=== PATIENT | female | born 1950 | race Caucasian/White ===

== ENCOUNTER 2020-11-10 14:16 | Inpatient (IN) | payer OTHER, SELFPAY ==
[~2020-11-10] VITALS: Ht 162.6 cm; Wt 85.3 kg
[2020-11-10 14:28] VITALS: BP 140/90
--- NOTE | 2020-11-10 14:45 | NUR ---
PATIENT C/O WEAKNESS, ONGOING "FLU LIKE" SYMPTOMS X 10 DAYS, INTERMITTENT FEVERS, INTERMITTENT VOMITING, FEELS DEHYDRATED, NO SPECIFIC PAIN, SEVERE FATIGUE. ONSET OF SOB LAST NIGHT, WORSE TODAY, NOTIFIED MD. WAS UNABLE TO TRANSPORT SELF FOR MEDICAL CARE, ARRIVED VIA AMBULANCE. PLACED ON GURNEY WITH SAP GATHERER IN PLACE SHOWING SINUS TACH, SKIN IS WARM BUT CLAMMY, RESP EVEN AND UNLABORED, BREATH SOUNDS CLEAR. SAO2 IS 90% ON 5l O2 VIA N/C IV ACCESS IN RAC, LABS DRAWN, SWABBED FOR COVID JESSICA. AWAITING ER MD WORLEY.
[2020-11-10] MEDS ORDERED: NACL 0.9% 1,000 ML IV ONE ×2 (15:30→17:30)
--- NOTE | 2020-11-10 15:30 | NUR ---
DR CASIANO AT BEDSIDE FOR EXAM AND EVAL.
--- NOTE | 2020-11-10 15:40 | NUR ---
medical instrument technician at pt bedside.
[2020-11-10 15:49] LABS: BASOPHILS % (AUTO) 0.1 % (0.0-2.0); EOSINOPHILS % (AUTO) 0.1 % (0.0-4.0); HEMATOCRIT 36.1 % (36-48); LYMPHOCYTES # (AUTO) 0.2 K/uL (2.5-16.5); LYMPHOCYTES % (AUTO) 1.3 % (20.5-51.1); MEAN CORPUSCULAR HEMOGLOBIN 32 pg (27-31); MEAN CORPUSCULAR HGB CONC 33 g/dL (33-37); MEAN CORPUSCULAR VOLUME 96.5 fL (80-94); MONOCYTES # (AUTO) 0.1 K/uL (0.8-1.0); MONOCYTES % (AUTO) 0.7 % (1.7-9.3); NEUTROPHILS # (AUTO) 13.5 K/uL (1.8-7.7); NEUTROPHILS % (AUTO) 97.8 % (42.2-75.2); PLATELET COUNT (AUTO) 287 K/uL (140-450); RED BLOOD CELL COUNT(AUTO) 3.74 MIL/uL (4.20-5.40); RED CELL DISTRIBUTION WIDTH 14.1 % (11.6-13.7); WHITE BLOOD COUNT (AUTO) 13.8 K/uL (4.8-10.8)
--- NOTE | 2020-11-10 15:52 | NUR ---
RAD AT PT BEDSIDE.
[2020-11-10 16:08] LABS: ALBUMIN 1.5 g/dL (3.4-5.0); ANION GAP 13.3 (8-16); CREATININE 1.1 mg/dL (0.6-1.3); POTASSIUM 3.3 mmol/L (3.5-5.1); TOTAL BILIRUBIN 0.6 mg/dL (0.0-1.0)
--- NOTE | 2020-11-10 16:27 | NUR ---
RESTING QUIETLY, FLUIDS INFUSING, PRE SALES SYSTEMS ENGINEER NSR 108
[2020-11-10] MEDS ORDERED: DOXYCYCLINE 100 MG in DEXTROSE 5% 100 ML IV SCH (17:30)
--- NOTE | 2020-11-10 17:30 | NUR ---
PATIENT IS RESTING WITH EYES CLOSED, MECHANICAL CAD DESIGNER SHOWS SINUS TACH 101, NO ECTOPY. RESP EVEN AND UNLABORED, O2 VIA NC @5L, SAO2 90%, SKIN IS WARM BUT SL CLAMMY, PATIENT STATES SHE IS PAIN FREE BUT FEELS WEAK. ADVISED PATIENT TO CALL FOR HELP PRIOR TO ATTEMPTING TO GET OUT OF BED. DR CASIANO UPDATED ON PATIENT STATUS, PLAN IS TO ADMIT PATIENT. PATIENT IS AWARE AND AGREES WITH PLAN.
[2020-11-10] MEDS ORDERED: cefTRIAXone 1,000 MG VIAL ONE (17:44)
[2020-11-10] MEDS ORDERED: DOXYCYCLINE 100 MG VIAL IV ONE (18:16)
[2020-11-10] MEDS ORDERED: SODIUM PHOS / POTASSIUM PHOS 1 PKT PDR PO PRN (19:05)
[2020-11-10] MEDS ORDERED: ACETAMINOPHEN 325 MG TAB PO PRN (19:05)
[2020-11-10] MEDS ORDERED: HYDROcodone/APAP 5/325 MG 1 TAB TAB PO PRN (19:05)
[2020-11-10] MEDS ORDERED: DOCUSATE SODIUM 100 MG GELCAP PO PRN (19:05)
[2020-11-10] MEDS ORDERED: ONDANSETRON 4 MG/2 ML VIAL IM/IVP PRN (19:05)
[2020-11-10] MEDS ORDERED: POTASSIUM CHLORIDE 40 MEQ, LIDOCAINE MPF 1% 25 MG in NACL 0.9% 250 ML IV PRN (19:05)
[2020-11-10] MEDS ORDERED: MAG SULF 2000 MG/WATER PREMIX 50 ML IV PRN (19:05)
--- NOTE | 2020-11-10 19:29 | NUR ---
O2 SATURATION FALLING INTO THE 80'S WITH O2 VIA NC AT 5L, CONVERTED TO NRB MASK AT 15L, SATS NOT IMPROVING. RT PAGED PER DR SWAN. RT IN CODE, WILL RESPOND SHORTLY, NOTIFIED.
--- NOTE | 2020-11-10 19:34 | NUR ---
RT AT BEDSIDE.
--- NOTE | 2020-11-10 19:36 | NUR ---
PLAN IS TO PLACE PATIENT ON BIPAP, ADMIT TO ICU.
--- NOTE | 2020-11-10 19:42 | NUR ---
Report taken from SHIRA MCKENZIE for continuation of patient care at this time.
[2020-11-10 19:51] LABS: MAGNESIUM 1.9 mg/dL (1.8-2.4); PHOSPHORUS 3.9 mg/dL (2.5-4.9)
--- NOTE | 2020-11-10 20:13 | NUR ---
PATIENT SITTING IN BED LOCKED IN LOWEST POSITION, HOB ELEVATED, PATIENT REPORTS SOB. PATIENT CONNECTED TO MONITOR, PATIENT IS TACHY AT 118HR, 146/81BP, 95% O2 ON 100% HIGHFLOW, 35RR. CRACKLES AUSCULTATED THROUGHOUT LUNG MEYER. CORNER CUTTER MACHINE OPERATOR AT BEDSIDE. PATIENT DENIES PAIN. WILL CONTINUE TO MONITOR.
[2020-11-10] MEDS: NACL 0.9% 1,000 ML IV SCH (20:28)
--- NOTE | 2020-11-10 21:17 | NUR ---
1920 PLACED PATIENT ON HI FLOW OXYGEN AT 100% FIO2 AT 40L. PATIENTS SATS DROPPED TO 85% ON HI FLOW SO PLACED NRB MASK ON PATIENT ALSO AT 100%
--- NOTE | 2020-11-10 22:01 | NUR ---
PROVIDED PATIENT W BEDSIDE COMMODE. PATIENT WAS ABLE TO STAND UP AND WALK TO BEDSIDE COMODE AND BACK TO BED.
[2020-11-11] VITALS (13 sets, daily range): BP systolic 82–145; BP diastolic 51–103
--- NOTE | 2020-11-11 00:01 | NUR ---
PROVIDED PATIENT W BEDPAN, REMOVED BEDPAN. PATIENT PROVIDED 80 CC OF YELLOW URINE.
--- NOTE | 2020-11-11 01:40 | NUR ---
PATIENT O2 SAT AT 76%, CALLED TIRE BUILDER OPERATOR. PATIENT AOX4, SPEAKING IN FULL SENTENCES.
--- NOTE | 2020-11-11 04:44 | NUR ---
COVERING FOR PRIMARY RN DURING LUNCH. Patient appears to be resting comfortably in bed. EYES CLOSED. NO NOTED DISTRESS AT THIS TIME. HOB REMAINS ELEVATED.
--- NOTE | 2020-11-11 06:00 | NUR ---
Provided patient w bed granados, patient voided approximately 100cc of clear yellow urine. Patient denies SOB while on oxygen only. patient breathing tachypneic. Will continue to monitor.
[2020-11-11 06:01] LABS: HEMATOCRIT 38.8 % (36-48); MEAN CORPUSCULAR HEMOGLOBIN 32 pg (27-31); MEAN CORPUSCULAR HGB CONC 33 g/dL (33-37); MEAN CORPUSCULAR VOLUME 95.7 fL (80-94); PLATELET COUNT (AUTO) 263 K/uL (140-450); RED BLOOD CELL COUNT(AUTO) 4.06 MIL/uL (4.20-5.40); RED CELL DISTRIBUTION WIDTH 13.8 % (11.6-13.7); WHITE BLOOD COUNT (AUTO) 13.6 K/uL (4.8-10.8)
--- NOTE | 2020-11-11 06:25 | NUR ---
PATIENT LAYING IN BED W EYES CLOSED. HOB ELEVATED. BED LOCKED IN LOWEST POSITION, X2 SIDERAILS UP FOR PATIENT SAFETY. BREATHING TACHYPNEIC AT 38RR, 124HR, 88 O2. WILL CONTINUE TO MONITOR.
[2020-11-11 06:35] LABS: ANION GAP 13.9 (8-16); CARBON DIOXIDE 22.2 mmol/L (21-32); POTASSIUM 4.1 mmol/L (3.5-5.1)
--- NOTE | 2020-11-11 07:15 | NUR ---
REPORT RECEIVED FROM ANDRIY SILVA FOR CONTINUITY OF CARE. PT A&OX4. ON NON REBREATHER 15L. HIGH FLOW NASAL CANNULA. 40LPM. FIO2%. O2 SATURATION 77%. IV SITE LAC 22G INFUSING NS 80 ML/HR. ORIENTED PT TO BE SIDE LYING AND PRONE POSITION. PT IN SIDE LYING POSITION. RT CALLED TO BEDSIDE. SKIN NON INTACT. CALL LIGHT WITHIN REACH. SAFETY PRECAUTIONS IN PLACE. WILL CONTINUE TO MONITOR.
--- NOTE | 2020-11-11 07:15 | NUR ---
Pt report given to SHIRA Hubbard. Transfer of care at this time.
--- NOTE | 2020-11-11 07:53 | NUR ---
RT AT BEDSIDE
--- NOTE | 2020-11-11 08:00 | NUR ---
Patient will be admitted to care of DR DOUGLAS. Admited to TELEMETRY. Will go to room 117 A. Belongings list completed. Report to TEN SILVA.
--- NOTE | 2020-11-11 08:36 | NUR ---
PLACED PT ON BIPAP IN THE ER DUE TO FREQUENT DESATING, TRANSFERRED PT TO FLOOR ON BIPAP, PLACED HFNC IN ROOM FOR POSSIBLE DOWNGRADE LATER. PT TOLERATING AT THIS TIME
--- NOTE | 2020-11-11 08:45 | NUR ---
PATIENT HAS BEEN SCREENED AND CATEGORIZED MODERATE NUTRITION RISK. PATIENT WILL BE SEEN WITHIN 3-5 DAYS OF ADMISSION. 11/13/20 11/15/[address]
[2020-11-11] MEDS ORDERED: AZITHROMYCIN 250 MG TAB PO SCH (09:00)
[2020-11-11] MEDS ORDERED: LORATADINE 10 MG TAB PO SCH (09:00)
[2020-11-11] MEDS ORDERED: FAMOTIDINE 20 MG TAB PO SCH (09:00)
[2020-11-11 09:29] LABS: LYMPHOCYTES % (MANUAL) 3 % (20-46); MONOCYTES % (MANUAL) 2 % (5-12)
--- NOTE | 2020-11-11 09:54 | NUR ---
SCHEDULED MEDICATIONS DUE GIVEN. WILL CONTINUE TO MONITOR.
--- NOTE | 2020-11-11 11:45 | NUR ---
TRANSPORTED PT TO CT SCANNER W TECH ON BIPAP, PT TOLERATED TRANSPORT ON BIPAP, PT STAYED ON BIPAP DURING CT SCANNER AT 100% FIO2.
--- NOTE | 2020-11-11 12:20 | NUR ---
PT DESATED AFTER REMOVING THE BIPAP MASK FOR ADDING THE BIPAP GEL FOR SKIN PROTECTION. PT ASKED FOR A SIP OF WATER WHILE MASK WAS OFF. AFTER REPLACING MASK ON PT AND PUTTING BACK ON PULSE OX PT HAD DESATED, INCREASED SETTINGS ON BIPAP, INFORMED NURSE, AND SET UP SUCTION FOR POSSIBLE EMERGENT PROCEDURE LATER. INFORMED RN THAT PT SHOULD NOT TAKE MASK OFF FOR SHORT TIME AT THIS TIME TILL PTS OXYGENATION IMPROVES. RECOMMENDED ICU TRANSFER DUE TO SETTINGS ON BIPAP AND OXYGENATION.
[2020-11-11] MEDS: PIPERACILLIN/TAZOBACTAM 3.375 GM in DEXTROSE 5% 50 ML IV SCH ×2 (12:25→18:58)
[2020-11-11] MEDS: NACL 0.9% 1,000 ML IV SCH (12:25)
--- NOTE | 2020-11-11 12:27 | NUR ---
SCHEDULED MEDICATIONS DUE GIVEN. WILL CONTINUE TO MONITOR.
[2020-11-11] MEDS ORDERED: LORazepam 2 MG/ML VIAL IVP ONE (12:50)
--- NOTE | 2020-11-11 13:30 | NUR ---
RECEIVED REPORT FROM TEN SILVA. PT AOX4, ABLE TO MAKE NEEDS KNOWN, FOLLOWS COMMANDS, NO C/O PAIN. PT BIPAP FIO2 100%. RESPIRATIONS ARE RAPID AND SHALLOW, O2SAT 82%, RT CALLED. ST ON MONITOR 130s. MARSHALL INSERTED. OBTAINED CONSENT FOR PICC LINE
--- NOTE | 2020-11-11 13:43 | NUR ---
ADMINISTERED SCHEDULED ONE TIME DOSE OF ATIVAN PER MD ORDER FOR TACHYPNEA. MED EDUCATION PROVIDED, PATIENT VERBALIZES UNDERSTANDING. PICC LINE NURSE AT BESIDE AT THIS TIME, PRIMARY RN ORDERING STAT XRAY FOR PLACEMENT CONFIRMATION. WILL MONITOR CLOSELY.
--- NOTE | 2020-11-11 14:15 | NUR ---
PICC PLACEMENT CONFIRMED BY CXR
--- NOTE | 2020-11-11 14:30 | NUR ---
PT RESTING IN BED. RESPIRATIONS STILL RAPID AND SHALLOW, [id number] DR FAN AWARE AND WILL COME SEE PT
[2020-11-11] MEDS ORDERED: PROPOFOL 1000 MG/100 ML PREMIX 100 ML IV ONE (16:46)
--- NOTE | 2020-11-11 16:54 | NUR ---
PT INTUBATED BY DR CASIANO WITH RSI, 20MG ETOMIDATE IV, 75MG PAULINO IV, 7.0 FR ETT, SECURED 22 CM AT TEETH, CO2 DETECTED, GOOD CHEST RISE AND FALL, XRAY ORDERED FOR CONFIRMATION OF POSITION
--- NOTE | 2020-11-11 17:05 | NUR ---
DUE TO INCREASED WOB, LOW SATS, AND TIRING OUT ON BIPAP PT WAS INTUBATED WITH ER MD CASIANO. WAS ABLE TO GET TUBE IN EASILY, PLACED WELL, COLOR CHANGE, AND STABILIZED ON VENT WITH SETTINGS PER DR MARTINEZ.
--- NOTE | 2020-11-11 17:06 | NUR ---
DAUGHTER RETURNED CALL, IT WAS EXPLAINED THAT THE PATIENT IS UNDERGOING INTUBATION AT THIS TIME. PATIENT CONDITION EXPLAINED, ALL QUESTIONS ANSWERED.
[2020-11-11] MEDS: PROPOFOL 1000 MG/100 ML PREMIX 100 ML IV PRN (17:10)
[2020-11-11] MEDS: NOREPINEPHRINE 8 MG in DEXTROSE 5% 250 ML IV PRN ×2 (17:40→23:45)
--- NOTE | 2020-11-11 18:16 | NUR ---
DR FAN NOTIFIED OF PT CONDITION, BP 80/55, HR 141, O2SAT 79%, PROPOFOL DRIP AT 10MCG/MIN, ORDER FOR NS BOLUS 500ML AND LEVOPHED RECEIVED, VENT SETTING CHANGE ORDER GIVEN TO RT
[2020-11-11] MEDS ORDERED: NACL 0.9% 500 ML IV ONE (18:20)
[2020-11-11] MEDS ORDERED: NOREPINEPHRINE 4 MG/4 ML VIAL IV ONE ×2 (18:22→23:32)
--- NOTE | 2020-11-11 18:37 | NUR ---
BP 85/62 SPO2 81% HR 148 RR20. TITRATED LEVOPHED UP TO 22MCG/MIN
--- NOTE | 2020-11-11 19:15 | NUR ---
RECEIVED PATIENT FROM AM SHIFT NURSE FOR CONTINUITY OF CARE. RASS -3. ETT TO VENT. RT AT BEDSIDE. O2 SAT 88%. NGT TO LEFT NARE NOTED. S1/S2 AUSCULTATED. FLACC 0. SKIN WARM, DRY. SALINE LOCK TO LEFT AC 18G PATENT/INTACT. RIGHT UPPER ARM PICC NOTED, INFUSING LEVOPHED AND PROPOFOL WELL. ABDOMEN SOFT, NONTENDER, NONDISTENDED. BOWEL SOUNDS ACTIVE x4 QUADRANTS. MARSHALL CATHETER PATENT WITH YELLOW URINE DRAINING TO GRAVITY. SAFETY PRECAUTIONS IN PLACE. ISOLATION PRECAUTIONS OBSERVED. PLAN OF CARE DISCUSSED.
[2020-11-11] MEDS ORDERED: VANCOMYCIN PER PHARMACY MC PRN (19:50)
[2020-11-11] MEDS ORDERED: VANCOMYCIN 1GM/DEXT 5% PREMIX 200 ML IV SCH (20:01)
[2020-11-11] MEDS ORDERED: SODIUM BICARBONATE 8.4% PFS 50 MEQ/50 ML SYR IVP ONE (20:07)
[2020-11-11] MEDS: [UNRECOGNIZED DRUG - OTHER] IV SCH ×2 (20:33)
[2020-11-11] MEDS: SODIUM BICARBONATE IV SCH ×2 (20:33)
--- NOTE | 2020-11-11 20:35 | NUR ---
LATE ENTRY- 0.9% NS IVF DISCONTINUED AT 1652 AND 1830. DOXYCYCLINE IVPB DISCONTINUED AT 1830
[2020-11-11] MEDS: methylPREDNISolone SS 125 MG/2 ML VIAL IVP SCH (20:41)
--- NOTE | 2020-11-11 21:30 | NUR ---
DUE MEDS GIVEN.
[2020-11-11] MEDS ORDERED: AZITHROMYCIN 500 MG INJ VIAL IV ONE (22:05)
[2020-11-11] MEDS ORDERED: VANCOMYCIN 1,000 MG VIAL ONE (22:08)
[2020-11-11] MEDS: AZITHROMYCIN 500 MG in DEXTROSE 5% 250 ML IV SCH (22:19)
--- NOTE | 2020-11-11 23:01 | NUR ---
NEW ORDERS RECEIVED AND CARRIED OUT. NO S/S RESPIRATORY DISTRESS. FLACC 0.
[2020-11-12] VITALS (23 sets, daily range): BP systolic 64–140; BP diastolic 15–80
[2020-11-12] MEDS: PROPOFOL 1000 MG/100 ML PREMIX 100 ML IV PRN ×3 (00:22→23:47)
[2020-11-12] MEDS ORDERED: VASOPRESSIN 20 UNITS/ML VIAL ONE (00:59)
[2020-11-12] MEDS ORDERED: VASOPRESSIN 20 UNITS in NACL 0.9% 250 ML IV SCH (01:00)
--- NOTE | 2020-11-12 01:15 | NUR ---
PATIENT WITH LOW BP, ORDERS RECEIVED AND CARRIED OUT.
--- NOTE | 2020-11-12 03:05 | NUR ---
RT AT BEDSIDE.
[2020-11-12] MEDS: NACL 0.9% 1,000 ML IV SCH (04:02)
[2020-11-12] MEDS: methylPREDNISolone SS 125 MG/2 ML VIAL IVP SCH ×3 (04:07→20:05)
[2020-11-12] MEDS ORDERED: NOREPINEPHRINE 4 MG/4 ML VIAL IV ONE (04:17)
[2020-11-12] MEDS ORDERED: PHENYLEPHRINE 10 MG/ML VIAL ONE (04:21)
[2020-11-12] MEDS ORDERED: PHENYLEPHRINE 40 MG in NACL 0.9% 250 ML IV PRN (04:45)
--- NOTE | 2020-11-12 05:30 | NUR ---
ALL NEEDS ANTICIPATED AND MET. FLACC 0. NO S/S RESPIRATORY DISTRESS. PATIENT IS CLEAN/DRY.
[2020-11-12 05:59] LABS: HEMATOCRIT 38.9 % (36-48); HEMOGLOBIN 12.9 g/dL (12.0-16.0); MEAN CORPUSCULAR HEMOGLOBIN 32 pg (27-31); MEAN CORPUSCULAR HGB CONC 33 g/dL (33-37); MEAN CORPUSCULAR VOLUME 97.4 fL (80-94); PLATELET COUNT (AUTO) 247 K/uL (140-450); RED CELL DISTRIBUTION WIDTH 14.8 % (11.6-13.7)
[2020-11-12 06:20] LABS: ANION GAP 18.1 (8-16); CARBON DIOXIDE 19.5 mmol/L (21-32); CREATININE 1.4 mg/dL (0.6-1.3); POTASSIUM 4.6 mmol/L (3.5-5.1)
[2020-11-12] MEDS: MORPHINE SULFATE 2 MG/ML SYR IVP PRN (06:20)
[2020-11-12 06:21] LABS: WHITE BLOOD COUNT (AUTO) 30.5 K/uL (4.8-10.8)
--- NOTE | 2020-11-12 07:21 | NUR ---
ENDORSED TO AM SHIFT NURSE FOR CONTINUITY OF CARE.
--- NOTE | 2020-11-12 07:26 | NUR ---
RECEIVED PATIENT FROM PM SHIFT NURSE FOR CONTINUITY OF CARE. RASS -3. ETT TO VENT. RESPIRATIONS EVEN AND UNLABORED WITH NO SOB OR RESPIRATORY DISTRESS. NGT TO LEFT NARE NOTED. S1/S2 AUSCULTATED. FLACC 0. SKIN WARM, DRY. SALINE LOCK TO LEFT AC 18G PATENT/INTACT. RIGHT UPPER ARM PICC NOTED, INFUSING LEVOPHED 14MCG AND PROPOFOL 20MCG/KG WELL. ABDOMEN SOFT, NONTENDER, NONDISTENDED. BOWEL SOUNDS ACTIVE x4 QUADRANTS. MARSHALL CATHETER PATENT WITH YELLOW URINE DRAINING TO GRAVITY. SAFETY MEASURES IN PLACE. WILL CONTINUE TO MONITOR
[2020-11-12 07:45] LABS: BASOPHILS % (MANUAL) 0 % (0-2); EOSINOPHILS % (MANUAL) 0 % (0-4); LYMPHOCYTES % (MANUAL) 3 % (20-46); MONOCYTES % (MANUAL) 0 % (5-12)
[2020-11-12] MEDS ORDERED: NACL 0.9% 1,000 ML IV SCH (08:00)
[2020-11-12] MEDS: PANTOPRAZOLE 40 MG INJ VIAL IVP SCH (08:08)
--- NOTE | 2020-11-12 08:45 | NUR ---
DR. FAN AT BEDSIDE ASSESSING PATIENT.
--- NOTE | 2020-11-12 08:50 | NUR ---
VENT SETTINGS WEANED PER MD AT BEDSIDE, PER MD WEAN FIO2 TOLERATED.
--- NOTE | 2020-11-12 09:00 | NUR ---
DR. FAN ON THE PHONE WITH PATIENT DAUGHTER BENJI GIVING UPDATE. SAFETY MEASURES IN PLACE. WILL CONTINUE TO MONITOR
[2020-11-12] MEDS: SODIUM BICARBONATE IV SCH ×2 (09:18)
[2020-11-12] MEDS: [UNRECOGNIZED DRUG - OTHER] IV SCH ×2 (09:18)
[2020-11-12] MEDS ORDERED: COMMUNICATION ORDER MC ONE (09:35)
[2020-11-12] MEDS: SODIUM BICARBONATE 8.4% 100 MEQ in DEXT 5% / NACL 0.45% 1,000 ML IV SCH (10:15)
--- NOTE | 2020-11-12 10:37 | NUR ---
PT RESTING IN BED. NO SIGNS OF DISTRESS. VISIBLE RISE AND FALL OF CHEST, NO DISTRESS AT THIS TIME. SAFETY MEASURES IN PLACE. WILL CONTINUE TO MONITOR
--- NOTE | 2020-11-12 11:10 | NUR ---
DR. BRIGHT ASSESSING PATIENT
--- NOTE | 2020-11-12 12:33 | NUR ---
ADMINISTERED SCHED MED PRESCRIBED PER MD ORDER. PT TOLERATED WELL. SAFETY MEASURES IN PLACE. WILL CONTINUE TO MONITOR
[2020-11-12] MEDS: NOREPINEPHRINE 8 MG in DEXTROSE 5% 250 ML IV PRN (12:36)
--- NOTE | 2020-11-12 14:05 | NUR ---
REPOSITIONED PATIENT COMFORTABLY. ORAL CARE PERFORMED. PT TOLERATED WELL. SAFETY MEASURES IN PLACE. WILL CONTINUE TO MONITOR
--- NOTE | 2020-11-12 16:36 | NUR ---
ADMINISTERED SCHED MED PRESCRIBED PER MD ORDER. PT TOLERATED WELL. SAFETY MEASURES IN PLACE. WILL CONTINUE TO MONITOR
[2020-11-12] MEDS ORDERED: VANCOMYCIN 1,000 MG in DEXTROSE 5% 250 ML IV SCH (17:00)
--- NOTE | 2020-11-12 17:16 | NUR ---
DAUGHTER MILTON CALLED AND WANTED AN UPDATE. UPDATE GIVEN. SAFETY MEASURES IN PLACE. WILL CONTINUE TO MONITOR
--- NOTE | 2020-11-12 18:47 | NUR ---
DAUGHTER MILTON HERE AT DOOR TO SEE PATIENT. UPDATE GIVEN. SAFETY MEASURES IN PLACE. WILL CONTINUE TO MONITOR
--- NOTE | 2020-11-12 19:15 | NUR ---
RECEIVED PATIENT FROM AM SHIFT NURSE FOR CONTINUITY OF CARE. RASS -3. ETT TO VENT. O2SAT 96%. NGT TO LEFT NARE NOTED. S1/S2 AUSCULTATED. FLACC 0. SKIN WARM, DRY.RIGHT UPPER ARM PICC NOTED, INFUSING PROPOFOL WELL. ABDOMEN SOFT, NONTENDER, NONDISTENDED. BOWEL SOUNDS ACTIVE x4 QUADRANTS. MARSHALL CATHETER PATENT WITH YELLOW URINE DRAINING TO GRAVITY. SAFETY PRECAUTIONS IN PLACE. ISOLATION PRECAUTIONS OBSERVED. PLAN OF CARE DISCUSSED.
--- NOTE | 2020-11-12 19:15 | NUR ---
ENDORSED TO NIGHTSHIFT NURSE FOR CONTINUITY OF CARE
[2020-11-12] MEDS: AZITHROMYCIN 500 MG in DEXTROSE 5% 250 ML IV SCH (21:22)
--- NOTE | 2020-11-12 21:30 | NUR ---
DUE MEDS GIVEN ORDERED. NO S/S RESPIRATORY DISTRESS. RASS -3. FLACC 0. PATIENT IS CLEAN/DRY. ALL OTHER NEEDS MET.
--- NOTE | 2020-11-12 23:23 | NUR ---
PATIENT RESTING COMFORTABLY IN BED. RASS -3. NO S/S RESPIRATORY DISTRESS. FIO2 DECREASED TO 65% PER RT. FLACC 0. PATIENT IS CLEAN/DRY.
[2020-11-13] VITALS (31 sets, daily range): BP systolic 98–160; BP diastolic 56–99
--- NOTE | 2020-11-13 01:30 | NUR ---
VAP ORAL CARE RENDERED.
--- NOTE | 2020-11-13 03:30 | NUR ---
NO S/S RESPIRATORY DISTRESS. FLACC 0. PATIENT IS CLEAN/DRY.
[2020-11-13] MEDS: methylPREDNISolone SS 125 MG/2 ML VIAL IVP SCH ×3 (05:10→21:07)
[2020-11-13] MEDS: PROPOFOL 1000 MG/100 ML PREMIX 100 ML IV PRN ×4 (05:11→22:33)
[2020-11-13 05:46] LABS: BASOPHILS % (AUTO) 0.1 % (0.0-2.0); HEMATOCRIT 33.3 % (36-48); HEMOGLOBIN 11.3 g/dL (12.0-16.0); LYMPHOCYTES # (AUTO) 0.4 K/uL (2.5-16.5); MEAN CORPUSCULAR HEMOGLOBIN 33 pg (27-31); MEAN CORPUSCULAR HGB CONC 34 g/dL (33-37); MEAN CORPUSCULAR VOLUME 95.8 fL (80-94); MONOCYTES # (AUTO) 0.2 K/uL (0.8-1.0); MONOCYTES % (AUTO) 0.7 % (1.7-9.3); NEUTROPHILS # (AUTO) 21.2 K/uL (1.8-7.7); NEUTROPHILS % (AUTO) 97.2 % (42.2-75.2); PLATELET COUNT (AUTO) 152 K/uL (140-450); RED BLOOD CELL COUNT(AUTO) 3.48 MIL/uL (4.20-5.40); RED CELL DISTRIBUTION WIDTH 14.5 % (11.6-13.7); WHITE BLOOD COUNT (AUTO) 21.8 K/uL (4.8-10.8)
--- NOTE | 2020-11-13 05:55 | NUR ---
DUE MEDS GIVEN. PATIENT TURNED AND REPOSITIONED. NO S/S RESPIRATORY DISTRESS. FLACC 0.
[2020-11-13 06:03] LABS: ANION GAP 13.3 (8-16); CARBON DIOXIDE 25.3 mmol/L (21-32); CREATININE 1.7 mg/dL (0.6-1.3); POTASSIUM 3.6 mmol/L (3.5-5.1)
[2020-11-13 06:09] LABS: MAGNESIUM 2.6 mg/dL (1.8-2.4); PHOSPHORUS 3.3 mg/dL (2.5-4.9)
--- NOTE | 2020-11-13 07:22 | NUR ---
ENDORSED PATIENT TO AM SHIFT NURSE FOR CONTINUITY OF CARE.
[2020-11-13] MEDS: ALBUTEROL SULFATE/IPRATROPIU 3 ML SOL IH PRN ×3 (07:23→19:11)
--- NOTE | 2020-11-13 07:23 | NUR ---
RECEIVED INTUBATED PT WITH A 7.0 ETT SECURED @22 TEETH/GUM ON VENT. SETTINGS PC Pinsp 20, R28, PEEP 10 AND FIO2 TITRATED TO 45%. PT SUCTIONED OBTAINED SMALL AMOUNT OF THICK CLEAR SECRETIONS, AIRWAY IS PATENT AND ETT IS SECURE. PT NOT IN ANY DISTRESS AT THIS TIME. VENT IS PLUGGED INTO A RED OUTLET WITH ALARMS ON AND FUNCTIONING. WILL CONTINUE TO MONITOR.
--- NOTE | 2020-11-13 07:24 | NUR ---
RECEIVED BEDSIDE REPORT FROM UTILITY TECH NURSE LIBRA RN FOR CONTINUITY OF CARE. PATIENT IS SEDATED TO RASS -3, DRY WEIGHT 68 KG. RESPIRATION EVEN, UNLABORED ON ROOM AIR, LUNG SOUNDS WHEEZES AND DIMINISHED UPON AUSCULTATION, SPO2 AT 100% AT THIS TIME ON ETT TO VENT, AC/PC FIO2 50%, RATE 28, PEEP 10. NO SIGNS OF ACUTE DISTRESS NOTED. IV TO R UPPER ARM PICC LINE, PATENT, INTACT, INFUSING PROPOFOL 20 MCG/KG/MIN, SODIUM BICARBONATE AT 50 ML/HR. SKIN WARM TO TOUCH, CLEAN AND DRY. MARSHALL CATH IN PLACE, DRAINING TO GRAVITY, YELLOW URINE WITH MINIMAL SEDIMENT IN BAG NOTED. PILLOWS PLACED TO OFFLOAD PRESSURE. NGT IN L NARE, NOT CONNECTED IN SUCTIONING OR FEEDING. SAFETY MEASURES IN PLACE. ENHANCED DROPLET PRECAUTION IN PLACE. BED IN LOW POSITION, HOB ELEVATED 30 DEGREE, AND BED LOCKED.
--- NOTE | 2020-11-13 07:58 | NUR ---
RECEIVED CALL FROM DAUGHTER DANNY, ANSWERED ALL HER QUESTIONS, UPDATED HER WITH PATIENT'S CURRENT CONDITION, DANNY WAS AWARE.
[2020-11-13] MEDS: SODIUM BICARBONATE 8.4% 100 MEQ in DEXT 5% / NACL 0.45% 1,000 ML IV SCH (08:00)
--- NOTE | 2020-11-13 08:21 | NUR ---
FNS CONSULT FOR TUBE FEEDING WAS RECEIVED. PATIENT WAS RE-SCREENED AND RE-CATEGORIZED HIGH NUTRITION RISK. PATIENT WILL BE SEEN WITHIN 1-2 DAYS OF RECEIVING CONSULT. 11/13/20-11/14/[address]
--- NOTE | 2020-11-13 09:31 | NUR ---
DR COLEMAN AND MEDICAL TEAM IS ROUNDING ON PATIENT.
[2020-11-13] MEDS: PANTOPRAZOLE 40 MG INJ VIAL IVP SCH (09:32)
--- NOTE | 2020-11-13 09:50 | NUR ---
SCHEDULED MEDS ADMINISTERED PER MD ORDER. HYGIENE CARE PROVIDED, ORAL CARE, MARSHALL CARE AND CHG BATH. WITH ASSIST, REPOSITIONED PATIENT, PILLOWS PLACED TO OFFLOAD PRESSURE, AND APPLIED HEEL PROTECTORS BILATERALLY. PATIENT TOLERATED FAIR. NO SIGNS OF ACUTE DISTRESS NOTED. SAFETY MEASURES IN PLACE.
--- NOTE | 2020-11-13 11:20 | NUR ---
ORAL CARE PROVIDED, PATIENT TOLERATED FAIR, FLACC 0. RESPIRATION EVEN, UNLABORED ON ETT TO VENT, SPO2 97% AT THIS TIME. NO SIGNS OF ACUTE DISTRESS NOTED. SAFETY MEASURES IN PLACE.
--- NOTE | 2020-11-13 11:36 | NUR ---
PEEP TITRATED TO 8cmH2O NURSE MADE AWARE. WILL CONTINUE TO MONITOR.
--- NOTE | 2020-11-13 12:35 | NUR ---
PATIENT HAS A SMALL SOFT BROWN BM, WITH ASSIST, PROVIDED HYGIENE CARE, AND CHANGED ALL DIRTY LINENS, REPOSITIONED PATIENT, PILLOWS PLACED TO OFFLOAD PRESSURE, PATIENT TOLERATED FAIR. SAFETY MEASURES IN PLACE.
--- NOTE | 2020-11-13 12:48 | NUR ---
ATTEMPTED TO SEE PATIENT FOR PHYSICAL THERAPY EVALUATION HOWEVER PATIENT HAD CHANGE IN CONDITION AND IS NOW ICU STATUS. NEW ORDER NEEDED WHEN PATIENT IS APPROPRIATE; RN AWARE.
--- NOTE | 2020-11-13 12:59 | NUR ---
SCHEDULED METHYLPREDNISOLONE GIVEN VIA IVP PER MD ORDER. ORAL CARE PROVIDED. PATIENT TOLERATED FAIR, FLACC 0. NO SIGNS OF ACUTE DISTRESS NOTED. SAFETY MEASURES IN PLACE.
--- NOTE | 2020-11-13 13:35 | NUR ---
PEEP TITRATED TO 5cmH2O SPO2 REMAINS HIGH 90'S%. WILL CONTINUE TO MONITOR.
--- NOTE | 2020-11-13 13:55 | NUR ---
DR. COLEMAN APPROVED TUBE FEEDING RECOMMENDATIONS FOR VITAL AF 1.2 @ 55 ML/HR WITH FREE WATER FLUSH OF 125 ML Q6H. RECEIVED TORB.
--- NOTE | 2020-11-13 14:18 | NUR ---
DR KIDD IS ROUNDING ON PATIENT, PROVIDED HIM WITH DAUGHTER DANNY'S PHONE NUMBER AND MADE AWARE THAT CARRY WOULD LIKE TO SPEAK WITH HIM.
--- NOTE | 2020-11-13 14:22 | NUR ---
RECEIVED CALL FROM DAUGHTER NAHID AND PROVIDED HER WITH PATIENT'S CURRENT CONDITION, NAHID WAS AWARE.
--- NOTE | 2020-11-13 14:36 | NUR ---
11/13/20 RD INITIAL ASSESSMENT COMPLETED PLEASE REFER TO NUTRITION ASSESSMENT UNDER CARE ACTIVITY FOR ESTIMATED NUTRITIONAL NEEDS. 1. RECOMMENDED VITAL AF 1.2 @ 55 ML/HR. START AT 20 ML/HR AND INCREASE BY 20 ML/HR Q4H 2. RECOMMEND FLUSH OF 125 ML Q6H 3. IF/WHEN PATIENT IS EXTUBATION, RECOMMEND A SWALLOW EVALUATION TO ADVANCE DIET 4. RD TO FOLLOW-UP 2-3 DAYS, HIGH RISK MITCH OCAMPO, IVANA
--- NOTE | 2020-11-13 14:53 | NUR ---
TUBE FEEDING VITAL AF 1.2 STARTED AT 20 ML/HR AND INCREASE BY 20 ML/HR Q4H PER FNS RECOMMENDED. WATER FLUSH OF 125 ML Q6H.
--- NOTE | 2020-11-13 15:36 | NUR ---
ORAL CARE PROVIDED. WITH ASSIST, REPOSITIONED PATIENT, PILLOWS PLACED TO OFFLOAD PRESSURE, PATIENT TOLERATED FAIR, FLACC 0. RESPIRATION EVEN, UNLABORED ON ETT TO VENT FIO2 45%, SPO2 96%. SAFETY MEASURES IN PLACE. HOB ELEVATED 35 DEGREE, BED IN LOW POSITION, AND BED LOCKED.
--- NOTE | 2020-11-13 15:51 | NUR ---
DC PLANN[age] YRS OLD FEMALE PATIENT WAS ADMITTED FROM HOME WITH A DX OF MULTIFOCAL PNEUMONIA, HYPOXIA . PT HAS A HX OF BRONCHITIS. CXR SHOWED PNEUMONIA, CT CHEST SHOWED MILD LEFT PLEURAL EFFUSION. RAPID COVID TEST AND PCR NEGATIVE. INTUBATED SEDATED FIO2 45% SATING 97% .ADMINISTERED IVF, IV ABX ROCEPHIN AND AZITHROMYCIN , ON PROPOFOL AND VASOPRESSIN DRIP. CONSULTED WITH PULMO, NEPHRO AND ID. DC PLAN PER PATIENT RESPOND TO THE TREATMENT. CM TO FOLLOW. Addendum: 11/14/20 at 1427 by Ely Trujillo RN DC PLANNING: REMAINS INTUBATED SEDATED FI02 40% SATING 97%. CONTINUE IV ROCEPHIN AZITHROMYCIN AND VANCOMYCIN. ID AND PULMO FOLLOWING. DC PLANING PER PT RESPOND TO THE TREATMENT. CM TO FOLLOW Addendum: 11/21/20 at 1608 by Ely Trujillo RN DC PLANNING: PATIENT IS ACCEPTED AT [facility] PROVIDE AUTH # [id number] TRANSPORT [facility] BE WITH [facility] AUTH NUMBER [id number]. AWAITING FOR DC ORDER. CM TO FOLLOW Addendum: 11/22/20 at 1112 by Ely Trujillo RN DC PLANNING PT IS GOING TO [facility] ROOM 13B # TO GIVE REPORT [phone] ARRANGED TRANSPORT WITH [facility] EDUCATOR TIME WILL BE BETWEEN 2-3 PM NOTIFIED BEL SILVA AND PT'S DAUGHTER NAHID.
--- NOTE | 2020-11-13 16:22 | NUR ---
DAUGHTER NAHID IS VISITING PATIENT AT BEDSIDE. PROVIDED UPDATES, NAHID WAS AWARE.
--- NOTE | 2020-11-13 17:14 | NUR ---
DR BRIGHT IS ROUNDING ON PATIENT.
--- NOTE | 2020-11-13 17:58 | NUR ---
PT REMAINS ON DOCUMENTED SETTINGS. ETT IS SECURE WITH A PATENT AIRWAY. VENT ALARMS REMAIN ON AND FUNCTIONING.
--- NOTE | 2020-11-13 18:05 | NUR ---
CHECKED NGT RESIDUAL AND RECEIVED 15 ML WHITE RESIDUAL, FLUSHED. PATIENT TOLERATED NGT FEEING WELL, ADVANCED TO GOAL RATE 55 ML/HR. WATER FLUSH 125 ML/Q6H PER FNS RECOMMENDED.
--- NOTE | 2020-11-13 18:19 | NUR ---
SCHEDULED ROCEPHIN GIVEN PER MD ORDER. WITH ASSIST, REPOSITIONED PATIENT, PILLOWS PLACED TO OFFLOAD PRESSURE, HEEL PROTECTORS IN PLACE. ORAL CARE PROVIDED. PATIENT TOLERATED FAIR, FLACC 0. NO SIGNS OF ACUTE DISTRESS NOTED. SAFETY MEASURES IN PLACE.
--- NOTE | 2020-11-13 20:00 | NUR ---
RECEIVED PATIENT ON VENT VIA ETT, AC/PC WITH RATE OF 28 , FIO2 45% PEEP 5 , HR 127 RR 35 , SEDATED WITH PROPOFOL AT 30 MCG/KG/MIN, BICARB DRIP INFUSING AT 50 ML/HR AT JUAN , SITE IS CLEAR. LEFT NG FEEDING WITH VITAL 1.2 AT 55 ML/HR, FLUSHED WITH H2O. MARSHALL CATH IN PLACE AND DRAIN TO GRAVITY.
[2020-11-13] MEDS: AZITHROMYCIN 500 MG in DEXTROSE 5% 250 ML IV SCH (21:09)
[2020-11-14] VITALS (34 sets, daily range): BP systolic 97–166; BP diastolic 52–92
[2020-11-14] MEDS: ALBUTEROL SULFATE/IPRATROPIU 3 ML SOL IH PRN (01:24)
--- NOTE | 2020-11-14 02:25 | NUR ---
0130 PATIENTS TIDAL VOLUMES WERE LOW 300S AND PATIENT IS VERY TACHYPNEIC. INCREASED PEEP TO 8 AND PRESSURE TO 25. PATIENT HAS IMPROVED AND TIDAL VOLUMES ARE HIGH 400S TO 500 VT.
--- NOTE | 2020-11-14 04:26 | NUR ---
ORAL CARE AND SKIN CARE GIVEN , TURN AND REPOSITION Q2H TO KEEP COMFORT, BM X1 , GOOD SKIN AND PERICARE GIVEN.
--- NOTE | 2020-11-14 04:28 | NUR ---
BLOOD WORKS DONE , MORNING CARE GIVE.
[2020-11-14] MEDS: PROPOFOL 1000 MG/100 ML PREMIX 100 ML IV PRN ×3 (05:22→16:24)
[2020-11-14] MEDS: methylPREDNISolone SS 125 MG/2 ML VIAL IVP SCH ×2 (05:24→13:31)
[2020-11-14 06:03] LABS: BASOPHILS % (AUTO) 0.1 % (0.0-2.0); HEMATOCRIT 32.2 % (36-48); HEMOGLOBIN 11.1 g/dL (12.0-16.0); LYMPHOCYTES # (AUTO) 0.2 K/uL (2.5-16.5); LYMPHOCYTES % (AUTO) 2.1 % (20.5-51.1); MEAN CORPUSCULAR HEMOGLOBIN 33 pg (27-31); MEAN CORPUSCULAR HGB CONC 34 g/dL (33-37); MEAN CORPUSCULAR VOLUME 94.4 fL (80-94); MONOCYTES # (AUTO) 0.2 K/uL (0.8-1.0); NEUTROPHILS # (AUTO) 9.9 K/uL (1.8-7.7); NEUTROPHILS % (AUTO) 95.8 % (42.2-75.2); PLATELET COUNT (AUTO) 106 K/uL (140-450); RED BLOOD CELL COUNT(AUTO) 3.41 MIL/uL (4.20-5.40); RED CELL DISTRIBUTION WIDTH 14.3 % (11.6-13.7); WHITE BLOOD COUNT (AUTO) 10.3 K/uL (4.8-10.8)
[2020-11-14 06:40] LABS: ANION GAP 11.7 (8-16); CREATININE 1.5 mg/dL (0.6-1.3); POTASSIUM 3.7 mmol/L (3.5-5.1)
--- NOTE | 2020-11-14 07:25 | NUR ---
RECEIVED BEDSIDE REPORT FROM MORTGAGE LOAN FUNDER NURSE EULALIA RN FOR CONTINUITY OF CARE. PATIENT IS SEDATED TO RASS -3, DRY WEIGHT 68 KG. RESPIRATION EVEN, UNLABORED ON ROOM AIR, LUNG SOUNDS WHEEZES AND DIMINISHED UPON AUSCULTATION, SPO2 AT 98% AT THIS TIME, ON ETT TO VENT, AC/PC FIO2 45%, RATE 28, PEEP 8. NO SIGNS OF ACUTE DISTRESS NOTED. IV TO R UPPER ARM PICC LINE, PATENT, INTACT, INFUSING PROPOFOL 40 MCG/KG/MIN, SODIUM BICARBONATE AT 50 ML/HR. SKIN WARM TO TOUCH, CLEAN AND DRY. MARSHALL CATH IN PLACE, DRAINING TO GRAVITY, YELLOW URINE WITH MINIMAL SEDIMENT IN BAG NOTED. PILLOWS PLACED TO OFFLOAD PRESSURE, HEEL PROTECTORS ON BILATERALLY. NGT IN L NARE, RUNNING FEEDING VITAL AF 1.2 AT 55 ML/HR, WATER FLUSH 125 ML/Q6H. SAFETY MEASURES IN PLACE. BED IN LOW POSITION, HOB ELEVATED 35 DEGREE, AND BED LOCKED.
--- NOTE | 2020-11-14 07:29 | NUR ---
RECEIVED CRITICAL LAB BUN 66, MA PAGED, AIRPORT OPERATIONS SPECIALIST MD FOR STACEY PYLE. AWAITING FOR DR PYLE TO CALL BACK.
--- NOTE | 2020-11-14 07:40 | NUR ---
RECEIVED CALL BACK FROM DR PYLE, CRITICAL LAB BUN 66 MADE AWARE, ALSO MADE AWARE OF POTASSIUM VALUE. DR PYLE WAS AWARE AND NO ORDER RECEIVED AT THIS TIME.
[2020-11-14] MEDS: PANTOPRAZOLE 40 MG INJ VIAL IVP SCH (08:21)
--- NOTE | 2020-11-14 08:25 | NUR ---
CHECKED NGT RESIDUAL AND RECEIVED 70 ML WHITE/GREENISH RESIDUAL, FLUSHED. CONTINUE RUNNING VITAL AF 1.2 AT 55 ML/HR. SCHEDULED MEDS ADMINISTERED PER MD ORDER. HYGIENE CARE PROVIDED, ORAL CARE, MARSHALL CARE AND CHG BATH. WITH ASSIST, REPOSITIONED PATIENT, PILLOWS PLACED TO OFFLOAD PRESSURE, AND APPLIED HEEL PROTECTORS BILATERALLY. PATIENT TOLERATED FAIR. NO SIGNS OF ACUTE DISTRESS NOTED. SAFETY MEASURES IN PLACE. HOB ELEVATED 35 DEGREE, BED IN LOW POSITION, AND BED LOCKED.
--- NOTE | 2020-11-14 08:52 | NUR ---
CALLED DAUGHTER NAHID, PROVIDED UPDATES, ANSWERED ALL HER QUESTIONS, NAHID WAS AWARE. SHE REQUESTS THE INTENSIVE MD TO CALL HER TO DISCUSS PLAN OF CARE. WILL NOTIFY MD DURING ROUNDING.
--- NOTE | 2020-11-14 08:57 | NUR ---
SCHEDULED VANCOMYCIN GIVEN VIA IVPB PER MD ORDER.
[2020-11-14] MEDS ORDERED: VANCOMYCIN 1,000 MG in DEXTROSE 5% 250 ML IV SCH (09:00)
--- NOTE | 2020-11-14 11:22 | NUR ---
ORAL CARE PROVIDED AND SUCTIONED 2X, RECEIVED MINIMAL WHITE MUCUS. WITH ASSIST, REPOSITIONED PATIENT, PILLOWS PLACED TO OFFLOAD PRESSURE, PATIENT TOLERATED FAIR, FLACC 0. RESPIRATION EVEN, UNLABORED ON ETT TO VENT, AC/CP FIO2 40%, RATE 28, PEEP 5, SPO2 AT 100% AT THIS TIME. NGT VITAL AF 1.2 CONTINUE RUNNING AT 50 ML/HR, WATER FLUSH 125 ML/Q6H. PATIENT SEDATED RASS -3 ON 30 MCG/KG/MIN PROPOFOL. NO SIGNS OF ACUTE DISTRESS NOTED. SAFETY MEASURES IN PLACE. HOB ELEVATED 35 DEGREE, BED IN LOW POSITION AND BED LOCKED.
--- NOTE | 2020-11-14 12:25 | NUR ---
DR KIDD IS ROUNDING ON PATIENT, ORDERED TO STOP SODIUM BICARB, WILL INPUT ACCORDINGLY.
--- NOTE | 2020-11-14 13:31 | NUR ---
METHYLPREDNISOLONE GIVEN VIA IVP PER MD ORDER. ORAL CARE PROVIDED. WITH ASSIST, REPOSITIONED PATIENT, PILLOWS PLACED TO OFFLOAD PRESSURE, HEEL PROTECTOR IN PLACE. PATIENT TOLERATED FAIR, FLACC 0. RESPIRATION EVEN, UNLABORED ON AC/PC FIO2 40%, RATE 25, PEEP 5, SPO2 96% AT THIS TIME. NO SIGNS OF ACUTE DISTRESS NOTED. SAFETY MEASURES IN PLACE. HOB ELEVATED 35 DEGREE, BED IN LOW POSITION, AND BED LOCKED.
--- NOTE | 2020-11-14 15:14 | NUR ---
DR IGLESIAS IS ASSESSING PATIENT AT BEDSIDE. INFORMED THAT NAHID THE DAUGHTER WOULD LIKE TO SPEAK WITH HIM, PER DR IGLESIAS HE WILL CALL HER RIGHT NOW. RECEIVED TORB FOR SEDATION VACATION TOMORROW AND CXR TOMORROW. WILL INPUT ORDERS ACCORDINGLY.
--- NOTE | 2020-11-14 16:14 | NUR ---
PATIENT HAD A MODERATE SOFT BROWN/GREENISH BM, WITH ASSIST, PROVIDED HYGIENE CARE, CHANGED ALL DIRTY LINENS. REPOSITIONED PATIENT, PILLOWS PLACED TO OFFLOAD PRESSURE, HEEL PROTECTORS IN PLACE. ORAL CARE PROVIDED. PATIENT TOLERATED FAIR, FLACC 0. NO SIGNS OF ACUTE DISTRESS NOTED. SAFETY MEASURES IN PLACE. HOB ELEVATED 35 DEGREE, BD IN LOW POSITION, AND BED LOCKED.
--- NOTE | 2020-11-14 17:35 | NUR ---
STARTED A NEW BOTTLE OF TUBE FEEDING VITAL AF 1.2 STARTED AT 55 ML/HR PER FNS RECOMMENDED. WATER FLUSH OF 125 ML/Q6H. CHANGED ALL TUBING.
--- NOTE | 2020-11-14 18:01 | NUR ---
DAUGHTER NAHID IS VISITING PATIENT AT BEDSIDE. UPDATED HER WITH PATIENT'S CONDITION.
--- NOTE | 2020-11-14 18:10 | NUR ---
SCHEDULED ROCEPHIN GIVEN PER MD ORDER, MED EDUCATION PROVIDED TO DAUGHTER NAHID AT BEDSIDE. NAHID VERBALIZED UNDERSTANDING. PATIENT IS SEDATED TO RASS -3 WITH PROPOFOL 30 MCG/KG/MIN, RESPIRATION EVEN, UNLABORED ON AC/PC FIO2 40%, SPO2 97%. FLACC 0. NO SIGNS OF ACUTE DISTRESS NOTED. SAFETY MEASURES IN PLACE. HOB ELEVATED 35 DEGREE, BED IN LOW POSITION, AND BED LOCKED.
--- NOTE | 2020-11-14 18:27 | NUR ---
SON-IN-LAW ISELA IS VISITING PATIENT AT BEDSIDE. NO SIGNS OF ACUTE DISTRESS NOTED. SAFETY MEASURES IN PLACE.
--- NOTE | 2020-11-14 19:55 | NUR ---
RECEIVED PATIENT IN VENT VIA ETT, VENT SETTING: AC/PC RATE OF 25, FIO2 45% PEEP 8 , ON OG FEEDING WITH VITAL AT 55 ML/HR, RESIDUE IS 30 ML. FLUSHED WITH WATER, SEDATED WITH PROPOFOL 30 MCG/KG/MIN, INFUSING AT JUAN , SITE IS CLEAR, MARSHALL CATH IN PLACE AND DRAIN TO GRAVITY.
[2020-11-14] MEDS: predniSONE 10 MG TAB PO SCH (21:00)
[2020-11-14] MEDS: AZITHROMYCIN 500 MG in DEXTROSE 5% 250 ML IV SCH (21:00)
--- NOTE | 2020-11-14 23:23 | NUR ---
TITRATED PC FROM [id number] TO 20 cmH20 DUE LARGE EXHALE VOLUMES. (700s). PT TOLERATING WELL. RN NOTIFIED. WILL CONTINUE TO MONITOR PT.
[2020-11-15] VITALS (34 sets, daily range): BP systolic 113–165; BP diastolic 53–119
--- NOTE | 2020-11-15 00:36 | NUR ---
BM X1 WITH WATERY YELLOWISH STOOL, CHANGED ALL LINEN AND GOWN, GOOD SKIN CARE GIVEN. ORAL CARE GIVEN ORDERED. KEEP TURN AND REPOSITION Q2H TO PREVENT PRESSURE SORE.
--- NOTE | 2020-11-15 06:39 | NUR ---
bm again , good skin care and oral care given, suction from mouth and ET with small amount secretion noted.
[2020-11-15 07:02] LABS: HEMATOCRIT 26.2 % (36-48); HEMOGLOBIN 9.1 g/dL (12.0-16.0); MEAN CORPUSCULAR HEMOGLOBIN 33 pg (27-31); MEAN CORPUSCULAR HGB CONC 35 g/dL (33-37); MEAN CORPUSCULAR VOLUME 95.3 fL (80-94); PLATELET COUNT (AUTO) 129 K/uL (140-450); RED BLOOD CELL COUNT(AUTO) 2.76 MIL/uL (4.20-5.40); RED CELL DISTRIBUTION WIDTH 13.9 % (11.6-13.7); WHITE BLOOD COUNT (AUTO) 6.9 K/uL (4.8-10.8)
[2020-11-15 07:09] LABS: ANION GAP 9.9 (8-16); CARBON DIOXIDE 29.9 mmol/L (21-32); CREATININE 1.3 mg/dL (0.6-1.3); POTASSIUM 3.8 mmol/L (3.5-5.1)
--- NOTE | 2020-11-15 07:15 | NUR ---
RECEIVED BEDSIDE REPORT FROM BUNKER WORKER NURSE. PATIENT IS SEDATED TO RASS -3, DRY WEIGHT 68 KG. RESPIRATION EVEN, UNLABORED WITH NO SOB OR RESPIRATORY DISTRESS. LUNG SOUNDS WHEEZES AND DIMINISHED UPON AUSCULTATION, SPO2 AT 98% AT THIS TIME, ON ETT TO VENT, AC/PC FIO2 40%, RATE 25, PEEP 5. NO SIGNS OF ACUTE DISTRESS NOTED. IV TO R UPPER ARM PICC LINE, PATENT, CLEAN, AND INTACT, INFUSING PROPOFOL 30 MCG/KG/MIN. SKIN WARM AND DRY TO TOUCH. MARSHALL CATH IN PLACE, DRAINING TO GRAVITY, YELLOW URINE WITH MINIMAL SEDIMENT IN BAG NOTED. PILLOWS PLACED TO OFFLOAD PRESSURE, HEEL PROTECTORS ON BILATERALLY. NGT IN L NARE, RUNNING FEEDING VITAL AF 1.2 AT 55 ML/HR, WATER FLUSH 125 ML/Q6H. SAFETY MEASURES IN PLACE. WILL CONTINUE TO MONITOR
[2020-11-15] MEDS: PANTOPRAZOLE 40 MG INJ VIAL IVP SCH (08:38)
[2020-11-15] MEDS: predniSONE 10 MG TAB PO SCH ×2 (08:57→21:17)
[2020-11-15] MEDS ORDERED: VANCOMYCIN 1,000 MG in DEXTROSE 5% 250 ML IV SCH (09:00)
--- NOTE | 2020-11-15 09:05 | NUR ---
ORAL CARE PROVIDED TO PT TOLERATED WELL. PT TOLERATED WELL. MARSHALL CARE PROVIDED TO PATIENT TOLERATED WELL. PT HAD 5ML OF RESIDUAL TOLERATING FEEDS. CHG BATH AND DENIZ CARE PERFORMED PT TOLERATED WELL. ADMINISTERED SCHED MED PRESCRIBED PER MD ORDER. PT TOLERATED WELL. MEDICATION EDUCATION PERFORMED. PT SEDATED UNABLE TO VERBALIZE UNDERSTANDING. SAFETY MEASURES IN PLACE. WILL CONTINUE TO MONITOR
[2020-11-15 09:29] LABS: MONOCYTES % (MANUAL) 5 % (5-12)
[2020-11-15 09:30] LABS: LYMPHOCYTES % (MANUAL) 6 % (20-46)
--- NOTE | 2020-11-15 10:00 | NUR ---
DAUGHTER CALLED AND WANTED AN UPDATE. UPDATE GIVEN CARRY VERBALIZED UNDERSTANDING. SAFETY MEASURES IN PLACE. WILL CONTINUE TO MONITOR
--- NOTE | 2020-11-15 11:10 | NUR ---
PT ON SEDATION VACATION, SBT TRIAL STARTED ON CPAP 5 PS 10. TOLERATING WELL, WILL DRAW ABG IN ONE HOUR AND REPORT TO THE
--- NOTE | 2020-11-15 11:35 | NUR ---
DR. SNYDER AT BEDSIDE ASSESSING PATIENT.
[2020-11-15] MEDS ORDERED: NACL 0.45% 1,000 ML IV SCH (11:40)
--- NOTE | 2020-11-15 12:00 | NUR ---
DR. KIDD ASSESSING PATIENT AT BEDSIDE. ENDORSED THAT DAUGHTER DANNY WOULD LIKE AN UPDATE. DR. KIDD SAID THAT HE WILL GIVE HER AN UPDATE. SAFETY MEASURES IN PLACE. WILL CONTINUE TO MONITOR
--- NOTE | 2020-11-15 13:20 | NUR ---
REPORTED ABG RESULTS TO DR IGLESIAS AT BEDSIDE. DR IGLESIAS ASSESSED THE PT AND DECIDED TO NOT EXTUBATE TODAY. GOAL IS TO REPEAT SBT TRIAL AND BLOOD GAS TOMORROW FOR POSSIBLE EXTUBATION.
--- NOTE | 2020-11-15 14:05 | NUR ---
PT RESTING IN BED. NO SIGNS OF DISTRESS. SAFETY MEASURES IN PLACE. WILL CONTINUE TO MONITOR
--- NOTE | 2020-11-15 14:15 | NUR ---
11/15/20 RD FOLLOW UP COMPLETED PLEASE REFER TO NUTRITION ASSESSMENT UNDER CARE ACTIVITY FOR ESTIMATED NUTRITIONAL NEEDS. 1. CONT. VITAL AF 1.2 @ 55 ML/HR. START AT 20 ML/HR AND INCREASE BY 20 ML/HR Q4H 2. CONT. FLUSH OF 125 ML Q6H 3. IF/WHEN PATIENT IS EXTUBATION, RECOMMEND A SWALLOW EVALUATION TO ADVANCE DIET 4. RD TO FOLLOW-UP 2-3 DAYS, HIGH RISK MITCH OCAMPO, IVANA
[2020-11-15] MEDS: PROPOFOL 1000 MG/100 ML PREMIX 100 ML IV PRN (14:45)
--- NOTE | 2020-11-15 14:45 | NUR ---
CALLED TO PTS ROOM FOR RR IN THE 40s, PLACED PT BACK ON AC MODE. TOLERATED SBT TRIAL FOR 3 HOURS 45 MINUTES.
--- NOTE | 2020-11-15 15:15 | NUR ---
PT. ADMITTED WITH LOW LILY SCALE AT RISK -TURN AND REPOSITION Q2 HOURS -ASSESS AND MONITOR SKIN CONDITION DURING POSITION CHANGE -OFFLOAD BILATERAL HEELS BY PLACING PILLOWS UNDER CALVES AT ALL TIMES, UNLESS OTHERWISE CONTRAINDICATED -PRESSURE REDISTRIBUTION SURFACE THERAPY -KEEP SKIN CLEAN AND DRY AT ALL TIMES.
--- NOTE | 2020-11-15 16:05 | NUR ---
PROVIDED ORAL CARE AND REPOSITIONED PATIENT COMFORTABLY IN BED. PT TOLERATED WELL. SAFETY MEASURES IN PLACE. WILL CONTINUE TO MONITOR
--- NOTE | 2020-11-15 16:35 | NUR ---
FAMILY AT BEDSIDE VISITING. SAFETY MEASURES IN PLACE. WILL CONTINUE TO MONITOR
--- NOTE | 2020-11-15 17:15 | NUR ---
PT RESTING IN BED. RESPIRATIONS EVEN AND UNLABORED WITH NO SOB OR RESPIRATORY DISTRESS. SAFETY MEASURES IN PLACE. WILL CONTINUE TO MONITOR
--- NOTE | 2020-11-15 18:02 | NUR ---
ADMINISTERED SCHED MED PRESCRIBED PER MD ORDER. PT TOLERATED WELL. SAFETY MEASURES IN PLACE. WILL CONTINUE TO MONITOR
[2020-11-15] MEDS ORDERED: DEXMEDETOMIDINE HCL 400 MCG in NACL 0.9% 96 ML IV PRN (18:50)
--- NOTE | 2020-11-15 19:10 | NUR ---
ENDORSED TO NIGHTSHIFT NURSE FOR CONTINUITY OF CARE
--- NOTE | 2020-11-15 20:00 | NUR ---
RECEIVED REPORT FROM [facility] NURSE. PT ETT TO VENT, AC PC FI02 40%, RATE 25, PEEP 5. LEFT NGT TO TUBE FEEDING, VITAL AF @ 55ML/HR. JUAN PICC IN PLACE, INFUSING PROPOFOL 15MCG/KG/MIN, RASS -3, DRY WEIGHT 68 KG. PT WITHDRAWS TO PAIN, OPENS AND CLOSES EYES, ABLE TO NOD HEAD YES AND NO. SKIN WARM AND DRY, AFEBRILE, INTACT. REMOVED EXTRA BLANKETS. ABDOMEN LARGE, SOFT AND NONTENDER. BOWEL SOUNDS ACTIVE. MARSHALL CATHETER IN PLACE, MARSHALL BAG EMPTY. PITTING EDEMA NOTED AT BILATERAL LOWER EXTREMITIES, +1. PT NODS HEAD NO WHEN ASKED ABOUT PAIN. ORIENTED TO TREATMENT PLAN, CONTINUE REINFORCEMENT. BED LOCKED AND IN LOWEST POSITION, SIDE RAILS UP, HOB 30 DEGREES. WILL CONTINUE TO MONITOR.
[2020-11-15] MEDS: AZITHROMYCIN 500 MG in DEXTROSE 5% 250 ML IV SCH (21:17)
--- NOTE | 2020-11-15 21:20 | NUR ---
CONFIRMED NGT TO LEFT NARE VIA AUSCULTATION.GASTRIC RESIDUAL LESS THAN 10ML. TOLERATING WELL. SCHEDULED MEDS GIVEN. PT TURNED AND REPOSITIONED, ROBERT PADS COMPLETELY SOILED. CHECKED BALLOON AND ADVANCED MARSHALL, STILL LEAKING. REMOVED MARSHALL AND REINSERTED NEW MARSHALL CATHETER. IMMEDIATELY 1L KASANDRA URINE OUTPUT COLLECTED IN MARSHALL BAG. PROVIDED SKIN CARE AND CHANGED ALL LINEN. OFFLOADED PRESSURE AREAS. PROVIDED ORAL CARE. BED LOCKED AND IN LOWEST POSITION, SIDE RAILS UP. ALL NEEDS MET AT THIS TIME.
--- NOTE | 2020-11-15 22:46 | NUR ---
PT RESTARTED ON PROPOFOL, HR ELEVATED, BLOOD PRESSURE ELEVATED AND RESPIRATIONS IN HIGH 30's, WILL SLOWLY WEAN OFF TOLERATED.
[2020-11-16] VITALS (27 sets, daily range): BP systolic 128–151; BP diastolic 38–90
--- NOTE | 2020-11-16 00:24 | NUR ---
PT RESTING WELL, WAKES UP TO LIGHT PAIN. NO EYE CONTACT. TURNED AND REPOSITIONED. OFFLOADED PRESSURE AREAS. PROVIDED ORAL CARE. FLACC 0. WILL CONTINUE TO MONITOR.
--- NOTE | 2020-11-16 01:50 | NUR ---
PT SINUS TRAMAINE ON MONITOR. WAKES UP TO VOICE. REPOSITIONED AND PROVIDED ORAL CARE. PROPOFOL OFF AND PRECEDEX AT LOWEST RATE. WILL CONTINUE TO MONITOR.
--- NOTE | 2020-11-16 04:15 | NUR ---
NO SIGNS OF DISTRESS. PT REMAINS SB TO SR ON MONITOR, PT RASS-1, REPOSITIONED AND OFFLOADED PRESSURE AREAS. SAFETY MEASURES IN PLACE.
[2020-11-16] MEDS: MORPHINE SULFATE 2 MG/ML SYR IVP PRN ×2 (04:39→18:02)
--- NOTE | 2020-11-16 04:50 | NUR ---
PT GRIMACING, ASKED ABOUT PAIN, NODDED HEAD YES AND POINTING AT THROAT. IVP MORPHINE GIVEN. PT MADE AWARE THAT PRECEDEX DECREASES HEART RATE SIGNIFICANTLY AND REORIENTED PT TO TREATMENT PLAN. WILL REASSESS.
--- NOTE | 2020-11-16 05:30 | NUR ---
PT REPORTS PAIN IMPROVING, NODDED HEAD NO. SPONGE BATH, MARSHALL CARE, AND ORAL CARE PROVIDED. TOLERATED WELL. SKIN INTACT, NO BM NOTED. TUBE FEEDING HELD FOR PLANNED EXTUBATION. WILL CONTINUE TO MONITOR.
--- NOTE | 2020-11-16 06:15 | NUR ---
MARSHALL OUTPUT 2450ML KASANDRA URINE. PT RASS -1, ABLE TO FOLLOW SOME SIMPLE COMMANDS. PT CALM AND NOT REACHING FOR TUBE, REORIENTED TO TREATMENT, PT NODDED HEAD YES WHEN ASKED IF SHE IS READY FOR CPAP TRIAL. ALL NEEDS MET AT THIS TIME. JUAN PICC HAS PRECEDEX AT 0.2MCG/KG/HR. SAFETY MEASURES IN PLACE.
--- NOTE | 2020-11-16 07:15 | NUR ---
RECEIVED REPORT FROM [facility] NURSE. PT ETT TO VENT, AC PC FI02 40%, RATE 25, PEEP 5. LEFT NGT TO TUBE FEEDING, VITAL AF @ 55ML/HR. JUAN PICC IN PLACE, INFUSING PRECEDEX 0.2MG/KG/HR RASS -1, DRY WEIGHT 68 KG. PT WITHDRAWS TO PAIN, ABLE TO FOLLOW SIMPLE COMMANDS. SKIN WARM AND DRY, AFEBRILE, INTACT. CATHETER IN PLACE, MARSHALL BAG EMPTY. PITTING EDEMA NOTED AT BILATERAL LOWER EXTREMITIES. SAFETY MEASURES IN PLACE. WILL CONTINUE TO MONITOR
[2020-11-16] MEDS: predniSONE 10 MG TAB PO SCH ×2 (08:58→20:49)
[2020-11-16] MEDS: LACTOBACILLUS RHAMNOSUS GG 1 EACH CAP PO SCH (08:58)
[2020-11-16] MEDS: PANTOPRAZOLE 40 MG INJ VIAL IVP SCH (08:59)
--- NOTE | 2020-11-16 09:08 | NUR ---
ADMINISTERED SCHED MED PRESCRIBED PER MD ORDER. PT TOLERATED WELL. MEDICATION EDUCATION PERFORMED, PT NODDED HEAD WITH UNDERSTANDING. SAFETY MEASURES IN PLACE. WILL CONTINUE TO MONITOR
--- NOTE | 2020-11-16 09:20 | NUR ---
PT WAS PLACED ON CPAP AT APPROX 0740, ABG WAS DRAWN WHILE ON CPAP AFTER AN HOUR. PT TOLERATING CPAP AT THIS TIME. ABG RESULTS GIVEN TO SHIRA VIRK. O2 SET UP PLACED AT BEDSIDE FOR POSS EXTUBATION AFTER MD ROUNDS.
--- NOTE | 2020-11-16 10:00 | NUR ---
DAUGHTER NAHID CALLED AND WANTED AN UPDATE. UPDATE GIVEN. STATED SHE WILL BE BY TO VISIT PATIENT HAFSA. SAFETY MEASURES IN PLACE. WILL CONTINUE TO MONITOR
[2020-11-16] MEDS ORDERED: VANCOMYCIN PER PHARMACY MC PRN (10:10)
--- NOTE | 2020-11-16 10:45 | NUR ---
DR. IGLESIAS ROUNDING AND ASSESSING PATIENT. ORDERS RECEIVED. WILL CONTINUE TO MONITOR
--- NOTE | 2020-11-16 10:55 | NUR ---
VERBAL ORDER PER MD FOR EXTUBATION OF PT TO NASAL CANNULA. PT HAD A GOOD CUFF LEAK, ACTIVE COUGH, WAS EXTUBATED WO ISSUE, AND WAS ABLE TO SPEAK AFTER REMOVAL OF ETT. NO AUDIBLE STRIDOR HEARD FROM AIRWAY. PT TOLERATING NASAL CANNULA AT THIS TIME.
[2020-11-16] MEDS: VANCOMYCIN 1,000 MG in DEXTROSE 5% 250 ML IV SCH (11:21)
--- NOTE | 2020-11-16 12:45 | NUR ---
CALLED NAHID AND GAVE UPDATE ON PATIENTS CONDITION. VERBALIZED UNDERSTANDING. SAFETY MEASURES IN PLACE. WILL CONTINUE TO MONITOR
--- NOTE | 2020-11-16 14:05 | NUR ---
PT RESTING IN BED. ABLE TO MAKE NEEDS KNOWN. RESPIRATIONS EVEN AND UNLABORED WITH NO SOB OR RESPIRATORY DISTRESS. SAFETY MEASURES IN PLACE. WILL CONTINUE TO MONITOR
--- NOTE | 2020-11-16 15:15 | NUR ---
ADMINISTERED SCHED MED PRESCRIBED PER MD ORDER. PT TOLERATED WELL. MEDICATION EDUCATION PERFORMED. PT NODDED WITH UNDERSTANDING. SAFETY MEASURES IN PLACE. WILL CONTINUE TO MONITOR
[2020-11-16] MEDS: FUROSEMIDE 20 MG/2 ML VIAL IVP SCH (15:30)
--- NOTE | 2020-11-16 17:00 | NUR ---
PT FAMILY AT BEDSIDE. SAFETY MEASURES IN PLACE. WILL CONTINUE TO MONITOR
--- NOTE | 2020-11-16 17:39 | NUR ---
PT WS SEEN FOR DYSPHAGIA . PT WAS ABLE TO SAFELY SWALLOW PUREE DIET WITH THIN LIQUID WITHOUT S/S OF ASPIRATION. RECOMMENDATION PUREE DIET WITH THIN LIQUID
--- NOTE | 2020-11-16 18:02 | NUR ---
PT COMPLAINED OF SEVERE BACK PAIN. PRN MORPHINE ADMINISTERED PRESCRIBED PER MD ORDER. MEDICATION EDUCATION PERFORMED. PT VERBALIZED UNDERSTANDING. SAFETY MEASURES IN PLACE. WILL CONTINUE TO MONITOR
--- NOTE | 2020-11-16 19:11 | NUR ---
ENDORSED AT BEDSIDE TO NIGHTSHIFT NURSE FOR CONTINUITY OF CARE
--- NOTE | 2020-11-16 19:36 | NUR ---
RECEIVED REPORT FROM DAYSHIFT NURSE AT PATIENTS BEDSIDE. PT AWAKE, ALERT, ANOx4. PT ON OXYMIZER 7L WITH HUMIDIFIER. BREATHING EVEN AND UNLABORED, BREATHING SOUNDS CLEAR. PT MAKES NEEDS KNOWN. FOLLOWS COMMANDS. PT WITH GENERALIZED WEAKNESS, RECENTLY MEDICATED FOR BACK PAIN BUT NOW HAS IMPROVED. JUAN PICC IN PLACE, IVF TKO. ABDOMEN LARGE SOFT AND NONTENDER, BOWEL SOUNDS ACTIVE. MARSHALL CATHETER REMAINS IN PLACE, DRAINING CLEAR YELLOW URINE. SKIN WARM AND DRY, AFEBRILE, INTACT. PT REQUESTING ICE CHIPS. AT BEDSIDE FEEDING PT AND WITH SMALL APPLE SAUCE. TOLERATING WELL. BED LOCKED AND IN LOWEST POSITION, SIDE RAILS UP, HIGH FOWLERS POSITION. ORIENTED TO TREATMENT PLAN, PT VERBALIZED UNDERSTANDING.ALL VITALS WITHIN RANGE, CALL LIGHT IN HAND. WILL CONTINUE TO MONITOR.
--- NOTE | 2020-11-16 19:40 | NUR ---
PT SEEN AND ASSESSED. FOUND POST EXTUBATED PT ON 7L OXYMIZER WITH SPO2 OF 94%. CLEAR BREATH ON AUSCULTATION. NO STRIDOR ON AUSCULTATION.
[2020-11-16 20:07] LABS: BASOPHILS % (AUTO) 0.2 % (0.0-2.0); EOSINOPHILS % (AUTO) 0.4 % (0.0-4.0); HEMATOCRIT 27.7 % (36-48); HEMOGLOBIN 9.1 g/dL (12.0-16.0); LYMPHOCYTES # (AUTO) 0.6 K/uL (2.5-16.5); LYMPHOCYTES % (AUTO) 5.4 % (20.5-51.1); MEAN CORPUSCULAR HEMOGLOBIN 32 pg (27-31); MEAN CORPUSCULAR HGB CONC 33 g/dL (33-37); MEAN CORPUSCULAR VOLUME 96.4 fL (80-94); MONOCYTES # (AUTO) 0.2 K/uL (0.8-1.0); MONOCYTES % (AUTO) 1.9 % (1.7-9.3); NEUTROPHILS # (AUTO) 10.2 K/uL (1.8-7.7); NEUTROPHILS % (AUTO) 92.1 % (42.2-75.2); PLATELET COUNT (AUTO) 156 K/uL (140-450); RED BLOOD CELL COUNT(AUTO) 2.88 MIL/uL (4.20-5.40); RED CELL DISTRIBUTION WIDTH 14.4 % (11.6-13.7); WHITE BLOOD COUNT (AUTO) 11.1 K/uL (4.8-10.8)
[2020-11-16 20:17] LABS: ANION GAP 11.2 (8-16); POTASSIUM 4.2 mmol/L (3.5-5.1)
[2020-11-16 20:20] LABS: MAGNESIUM 2.2 mg/dL (1.8-2.4); PHOSPHORUS 3.4 mg/dL (2.5-4.9)
[2020-11-16] MEDS: AZITHROMYCIN 500 MG in DEXTROSE 5% 250 ML IV SCH (20:48)
--- NOTE | 2020-11-16 21:05 | NUR ---
PT ORIENTED TO IV ANTIBIOTICS AND OTHER SCHEDULED MEDICATIONS, VERBALIZED UNDERSTANDING. ALL MEDS GIVEN. PT DENIES PAIN/SOB. HOB GREATER THAN 45 DEGREES, PT RESTING WELL, SIDE RAILS UP, ALL BELONGINGS WITHIN REACH.
--- NOTE | 2020-11-16 22:16 | NUR ---
PT DESATTING ON MONITOR TO LOW 70's. OXIMIZER MISPLACED, PT UNABLE TO INDEPENDENTLY SECURE OXIMIZER TO FACE AND HAVING DIFFICULTY USING THE CALL LIGHT. SECURED CALL LIGHT TO GOWN AND PLACED IN HAND. SP02 BACK TO 95%, OXYMIZER 7LPM.
--- NOTE | 2020-11-16 23:37 | NUR ---
AT PT's BEDSIDE, PT KEEPS ASKING FOR ICE CHIPS AND BREAKFAST. PT VERY HUNGRY, UNABLE TO FEED HERSELF. GENERALIZED WEAKNESS NOTED. PT ATE 2 WHOLE CUPS OF APPLE SAUCE AND BOTTLE OF ENSURE. NO INCIDENT OCCURRED. PT WITHOUT ANY COUGHS OR SHORTNESS OF BREATH. TURNED AND REPOSITIONED. ALL NEEDS MET AT THIS TIME.
[2020-11-17] VITALS (12 sets, daily range): BP systolic 122–156; BP diastolic 67–94
--- NOTE | 2020-11-17 01:17 | NUR ---
PT HAD 1 BOTTLE OF ENSURE, TOLERATED WELL, NO COUGHING OR CHOKING. PT NEEDS MAXIMUM ASSISTANCE.
--- NOTE | 2020-11-17 03:21 | NUR ---
Pt had a very large dark black loose stool (diarrhea). Skin intact, no skin breakdown. pt with generalized weakness. Sponge bath provided and salgado care. pt denies pain, still asking for ice chips. all needs met at this time.
--- NOTE | 2020-11-17 05:15 | NUR ---
PT HAD ANOTHER LARGE DIARRHEAL EPISODE. PROVIDED MARSHALL CARE AND PERINEAL CARE. DIAPER APPLIED. PT TOLERATED FAIRLY, NOTED WITH SEVERE WEAKNESS. PT ABLE TO MAKE NEEDS KNOWN. DENIES PAIN. OFFLOADED PRESSURE AREAS.
[2020-11-17 06:05] LABS: BASOPHILS % (AUTO) 0.1 % (0.0-2.0); EOSINOPHILS % (AUTO) 0.3 % (0.0-4.0); HEMATOCRIT 25.3 % (36-48); HEMOGLOBIN 8.5 g/dL (12.0-16.0); LYMPHOCYTES # (AUTO) 0.5 K/uL (2.5-16.5); MEAN CORPUSCULAR HEMOGLOBIN 32 pg (27-31); MEAN CORPUSCULAR HGB CONC 34 g/dL (33-37); MEAN CORPUSCULAR VOLUME 96.6 fL (80-94); MONOCYTES # (AUTO) 0.3 K/uL (0.8-1.0); MONOCYTES % (AUTO) 2.5 % (1.7-9.3); NEUTROPHILS # (AUTO) 11.8 K/uL (1.8-7.7); NEUTROPHILS % (AUTO) 93.1 % (42.2-75.2); PLATELET COUNT (AUTO) 217 K/uL (140-450); RED BLOOD CELL COUNT(AUTO) 2.62 MIL/uL (4.20-5.40); RED CELL DISTRIBUTION WIDTH 13.8 % (11.6-13.7); WHITE BLOOD COUNT (AUTO) 12.6 K/uL (4.8-10.8)
[2020-11-17 06:10] LABS: MAGNESIUM 1.8 mg/dL (1.8-2.4); PHOSPHORUS 3.5 mg/dL (2.5-4.9)
[2020-11-17 06:16] LABS: CARBON DIOXIDE 30.8 mmol/L (21-32); POTASSIUM 3.8 mmol/L (3.5-5.1)
--- NOTE | 2020-11-17 07:15 | NUR ---
TRANSFERRED PT TO [facility] VIA GURNEY, NO INCIDENT, CONNECTED TO SURGEON'S ASSISTANT, SETTLED IN BED, OXIMIZER INCREASED TO 12L FOR NOW JUST FOR SMALL ACTIVITY WITH TRANSFERRING TO OTHER BED. DAUGHTER NAHID CALLED AND NOTIFIED OF NEW ROOM AND PLAN. ALL QUESTIONS AND CONCERNS ANSWERED. HOB HIGH FOWLERS, CALL LIGHT IN HAND, BED LOCKED AND IN LOWEST POSITION. WILL ENDORSE TO DAYSHIFT TELE NURSE.
--- NOTE | 2020-11-17 07:32 | NUR ---
ENDORSED TO DAYSHIFT NURSE SHIRA SHOEMAKER. PT IN STABLE CONDITION. SAFETY MEASURES IN PLACE.
--- NOTE | 2020-11-17 07:33 | NUR ---
Received report from [facility] nurse. Pt resting in bed, lethargic, no signs of distress, respirations even & nonlabored. Call light within reach. Right upper arm PICC intact and asymptomatic.
[2020-11-17] MEDS: DEXTROSE 5% 1,000 ML IV SCH ×2 (08:23→21:26)
[2020-11-17] MEDS: FUROSEMIDE 20 MG/2 ML VIAL IVP SCH (08:45)
[2020-11-17] MEDS: PANTOPRAZOLE 40 MG INJ VIAL IVP SCH (08:45)
[2020-11-17] MEDS: predniSONE 10 MG TAB PO SCH ×2 (08:46→21:25)
[2020-11-17] MEDS: LACTOBACILLUS RHAMNOSUS GG 1 EACH CAP PO SCH (08:46)
--- NOTE | 2020-11-17 10:00 | NUR ---
Received call from patient's daughter Brandy informing nurse that family will be unable to visit d/t someone in that family had tested positive for COVID. Daughter spoke with patient through the phone. Patient interacting appropriately and verbalized understanding.
[2020-11-17] MEDS: VANCOMYCIN 1,000 MG in DEXTROSE 5% 250 ML IV SCH (11:14)
--- NOTE | 2020-11-17 11:45 | NUR ---
Patient asleep, wakes up to voice. Patient aaox3, respirations even & nonlabored on O2 @ 7L/min via n/c. HR 96. No c/o pain or discomfort.
--- NOTE | 2020-11-17 15:14 | NUR ---
11/17/20 RD FOLLOW UP COMPLETED PLEASE REFER TO NUTRITION ASSESSMENT UNDER CARE ACTIVITY FOR ESTIMATED NUTRITIONAL NEEDS. 1. CONT. REGULAR PUREE DIET TOLERATED 2. RECOMMEND ENSURE BID 3. PROVIDE ASSISTANCE WITH MEALS 4. RECOMMEND SWALLOW EVAL FOR DIET ADVANCEMENT WHEN MEDICALLY APPROPRIATE 5. RD TO FOLLOW-UP 3-5 DAYS, MODERATE RISK MITCH OCAMPO, RD
[2020-11-17] MEDS ORDERED: LOPERAMIDE 2 MG CAP PO SCH (16:26)
[2020-11-17] MEDS: ALBUTEROL SULFATE/IPRATROPIU 3 ML SOL IH PRN (19:33)
[2020-11-17] MEDS: AZITHROMYCIN 500 MG in DEXTROSE 5% 250 ML IV SCH (21:26)
[2020-11-18 00:15] VITALS: BP 128/69
[2020-11-18] MEDS ORDERED: LOPERAMIDE 2 MG CAP PO SCH ×2 (01:35→11:00)
[2020-11-18 04:20] VITALS: BP 123/72
--- NOTE | 2020-11-18 07:30 | NUR ---
RECEIVED REPORT FROM ROD WELDER NURSE AT PATIENTS BEDSIDE. PT AWAKE, ALERT, ANOx4. PT ON OXYMIZER 7L WITH HUMIDIFIER. BREATHING EVEN AND UNLABORED, BREATHING SOUNDS CLEAR. PT MAKES NEEDS KNOWN. FOLLOWS COMMANDS. PT WITH GENERALIZED WEAKNESS. JUAN PICC IN PLACE, IVF INFUSING WELL. ABDOMEN LARGE SOFT AND NONTENDER, BOWEL SOUNDS ACTIVE. MARSHALL CATHETER REMAINS IN PLACE, DRAINING CLEAR YELLOW URINE. SKIN WARM AND DRY, AFEBRILE, INTACT. PT REQUESTING ICE CHIPS. AT BEDSIDE FEEDING PT AND WITH SMALL APPLE SAUCE. TOLERATING WELL. BED LOCKED AND IN LOWEST POSITION, SIDE RAILS UP, HIGH FOWLERS POSITION. ORIENTED TO TREATMENT PLAN, PT VERBALIZED UNDERSTANDING.ALL VITALS WITHIN RANGE, CALL LIGHT IN HAND. WILL CONTINUE TO MONITOR.
[2020-11-18 08:00] VITALS: BP 129/69
[2020-11-18 08:58] LABS: ANION GAP 6.9 (8-16); CARBON DIOXIDE 30.5 mmol/L (21-32); CREATININE 0.9 mg/dL (0.6-1.3); POTASSIUM 3.4 mmol/L (3.5-5.1)
[2020-11-18 09:01] LABS: MAGNESIUM 1.7 mg/dL (1.8-2.4); PHOSPHORUS 3.2 mg/dL (2.5-4.9)
[2020-11-18 09:14] LABS: BASOPHILS % (AUTO) 0.3 % (0.0-2.0); EOSINOPHILS # (AUTO) 0.2 K/uL (0-0.4); EOSINOPHILS % (AUTO) 1.7 % (0.0-4.0); HEMATOCRIT 20.6 % (36-48); LYMPHOCYTES # (AUTO) 0.7 K/uL (2.5-16.5); LYMPHOCYTES % (AUTO) 6.4 % (20.5-51.1); MEAN CORPUSCULAR HEMOGLOBIN 32 pg (27-31); MEAN CORPUSCULAR HGB CONC 34 g/dL (33-37); MEAN CORPUSCULAR VOLUME 95.9 fL (80-94); MONOCYTES # (AUTO) 0.4 K/uL (0.8-1.0); MONOCYTES % (AUTO) 3.8 % (1.7-9.3); NEUTROPHILS # (AUTO) 9.6 K/uL (1.8-7.7); NEUTROPHILS % (AUTO) 87.8 % (42.2-75.2); PLATELET COUNT (AUTO) 218 K/uL (140-450); RED BLOOD CELL COUNT(AUTO) 2.15 MIL/uL (4.20-5.40); RED CELL DISTRIBUTION WIDTH 13.6 % (11.6-13.7); WHITE BLOOD COUNT (AUTO) 10.9 K/uL (4.8-10.8)
[2020-11-18] MEDS: LACTOBACILLUS RHAMNOSUS GG 1 EACH CAP PO SCH (09:27)
[2020-11-18] MEDS: PANTOPRAZOLE 40 MG INJ VIAL IVP SCH (09:27)
[2020-11-18] MEDS: predniSONE 10 MG TAB PO SCH (09:27)
[2020-11-18] MEDS: DEXTROSE 5% 1,000 ML IV SCH (10:35)
--- NOTE | 2020-11-18 10:38 | NUR ---
PHYSICAL THERAPIST WITH PATIENT. PATIENT TIRED, DID NOT WANT TO AMBULATE. HAD LARGE TARRY BM. PAGED DR. DOUGLAS TO REQUEST PRN IMODIUM PATIENT'S WISHES. WAITING FOR REPLY BACK. WILL CONTINUE TO MONITOR PATIENT.
[2020-11-18] MEDS: PSYLLIUM 12.2 GM/PKT PO SCH (10:55)
[2020-11-18] MEDS: VANCOMYCIN 1,000 MG in DEXTROSE 5% 250 ML IV SCH (12:02)
[2020-11-18 12:10] VITALS: BP 133/67
[2020-11-18] MEDS ORDERED: POTASSIUM CHLORIDE 10 MEQ TABER PO SCH (14:00)
[2020-11-18] MEDS: SODIUM FERRIC GLUCONATE 125 MG in NACL 0.9% 100 ML IV SCH (15:13)
[2020-11-18 15:57] LABS: BASOPHILS % (AUTO) 0.3 % (0.0-2.0); EOSINOPHILS # (AUTO) 0.1 K/uL (0-0.4); EOSINOPHILS % (AUTO) 0.9 % (0.0-4.0); HEMATOCRIT 20.1 % (36-48); LYMPHOCYTES # (AUTO) 0.5 K/uL (2.5-16.5); LYMPHOCYTES % (AUTO) 3.8 % (20.5-51.1); MEAN CORPUSCULAR HEMOGLOBIN 32 pg (27-31); MEAN CORPUSCULAR HGB CONC 33 g/dL (33-37); MEAN CORPUSCULAR VOLUME 96.2 fL (80-94); MONOCYTES # (AUTO) 0.4 K/uL (0.8-1.0); MONOCYTES % (AUTO) 2.9 % (1.7-9.3); NEUTROPHILS % (AUTO) 92.1 % (42.2-75.2); PLATELET COUNT (AUTO) 250 K/uL (140-450); RED BLOOD CELL COUNT(AUTO) 2.09 MIL/uL (4.20-5.40); RED CELL DISTRIBUTION WIDTH 13.5 % (11.6-13.7)
[2020-11-18 16:00] VITALS: BP 114/64
[2020-11-18 16:09] LABS: HEMOGLOBIN 6.7 g/dL (12.0-16.0)
--- NOTE | 2020-11-18 16:23 | NUR ---
LOC AWAKE AND ALERT VERBALLY RESPONSIVE GOOD CHEST RISE AND AERATION THROUGHOUT BILATERAL LUNG MEYER AIRWAY PATENT SATURATION 98% ON SUPPLEMENTAL OXYAGEN AT 7 LPM VIA OXYMIZER TITRATED FIO2 TO 5 LPM SPRAY DRIER TO MONITOR [place]/RN NOTIFIED
[2020-11-18] MEDS: SUCRALFATE 1 GM TAB PO SCH ×2 (17:15→21:00)
--- NOTE | 2020-11-18 19:29 | NUR ---
REPORT GIVEN TO SEAM CHECKER NURSE AT BEDSIDE FOR CONTINUITY OF CARE. PATIENT IN STABLE CONDITION.
[2020-11-18 20:30] VITALS: BP 122/63
[2020-11-18] MEDS: AZITHROMYCIN 500 MG in DEXTROSE 5% 250 ML IV SCH (21:35)
--- NOTE | 2020-11-19 03:00 | NUR ---
1 unit PRBC (blood) administered at 1150 pm, completed at 0210 am, pt tolerated well VS recorded on blood administration sheet WNL, and can be located in pt's paper chart. Pt was afebrile, prior, during and after blood admin. at present asleep at intervals, RESP REG NON - LABORED PO2 96%.
[2020-11-19 03:54] VITALS: BP 118/60
[2020-11-19] MEDS: DEXTROSE 5% 1,000 ML IV SCH (04:23)
[2020-11-19 06:19] LABS: BASOPHILS % (AUTO) 0.1 % (0.0-2.0); EOSINOPHILS # (AUTO) 0.3 K/uL (0-0.4); EOSINOPHILS % (AUTO) 2.4 % (0.0-4.0); HEMATOCRIT 24.4 % (36-48); HEMOGLOBIN 8.3 g/dL (12.0-16.0); LYMPHOCYTES # (AUTO) 0.8 K/uL (2.5-16.5); LYMPHOCYTES % (AUTO) 7.2 % (20.5-51.1); MEAN CORPUSCULAR HEMOGLOBIN 32 pg (27-31); MEAN CORPUSCULAR HGB CONC 34 g/dL (33-37); MEAN CORPUSCULAR VOLUME 94.2 fL (80-94); MONOCYTES # (AUTO) 0.5 K/uL (0.8-1.0); MONOCYTES % (AUTO) 4.9 % (1.7-9.3); NEUTROPHILS # (AUTO) 9.5 K/uL (1.8-7.7); NEUTROPHILS % (AUTO) 85.4 % (42.2-75.2); PLATELET COUNT (AUTO) 268 K/uL (140-450); RED BLOOD CELL COUNT(AUTO) 2.58 MIL/uL (4.20-5.40); RED CELL DISTRIBUTION WIDTH 15.1 % (11.6-13.7); WHITE BLOOD COUNT (AUTO) 11.1 K/uL (4.8-10.8)
[2020-11-19 06:26] LABS: MAGNESIUM 1.9 mg/dL (1.8-2.4); PHOSPHORUS 2.4 mg/dL (2.5-4.9)
--- NOTE | 2020-11-19 07:25 | NUR ---
RECEIVE REPORT FROM MOTOR VEHICLE ASSEMBLY SUPERVISOR NURSE FOR CONTINUITY OF CARE. PATIENT AWAKE. BREATHING EVEN AND UNLABORED. PATIENT ON 5L VIA OXYMIZER. ALL SAFETY MEASURES IN PLACE. WILL CONTINUE TO MONITOR.
--- NOTE | 2020-11-19 07:30 | NUR ---
REPORT TO AM RN. PT STATUS UNCHANGED ASLEEP AT INTERVAL, NAD NOTED, RESP REG NON-LABORED.
[2020-11-19 08:00] VITALS: BP 118/58
[2020-11-19] MEDS: PANTOPRAZOLE 40 MG INJ VIAL IVP SCH (10:03)
[2020-11-19] MEDS: PSYLLIUM 12.2 GM/PKT PO SCH (10:03)
--- NOTE | 2020-11-19 10:03 | NUR ---
PATIENT AWAKE. BREATHING EVEN AND UNLABORED. PATIENT ON OXYMIZER 5 L. ROUTINE MEDICATION GIVEN. ALL SAFETY MEASURES IN PLACE. WILL CONTINUE TO MONITOR.
[2020-11-19] MEDS: SUCRALFATE 1 GM TAB PO SCH ×4 (10:04→21:00)
[2020-11-19] MEDS: LACTOBACILLUS RHAMNOSUS GG 1 EACH CAP PO SCH (10:04)
[2020-11-19 10:52] LABS: ANION GAP 8.1 (8-16); CARBON DIOXIDE 27.8 mmol/L (21-32); CREATININE 0.9 mg/dL (0.6-1.3); POTASSIUM 3.9 mmol/L (3.5-5.1)
--- NOTE | 2020-11-19 11:51 | NUR ---
AWAKE AND ALERT VERBALLY RESPONSIVE NO EVIDENCE OF PULMONARY DISTRESS NOTED EQUAL CHEST RISE BREATH SOUNDS CLEAR BILATERAL WITH GOOD AERATION THROUGHOUT BILATERAL LUNG MEYER SATURATION 98% ON SUPPLEMENTAL OXYGEN AT 5 LPM VIA OXYMIZER TITRATED FIO2 TO 3 LPM VISUAL COMMUNICATIONS INSTRUCTOR TO NOTIFY RN
--- NOTE | 2020-11-19 12:15 | NUR ---
PATIENT AWAKE. NO ACUTE DISTRESS NOTED. PATIENT SITTING UP IN BED HAVING LUNCH. OXYMIZER 3L DECREASED BY RT. ALL SAFETY MEASURES IN PLACE. WILL CONTINUE TO MONITOR.
--- NOTE | 2020-11-19 14:51 | NUR ---
PATIENT SLEEPING. BREATHING EVEN AND UNLABORED. PATIENT ON 3L VIA OXYMIZER. ALL SAFETY MEASURES IN PLACE. WILL CONTINUE TO MONITOR.
[2020-11-19] MEDS: SODIUM FERRIC GLUCONATE 125 MG in NACL 0.9% 100 ML IV SCH (15:00)
[2020-11-19] MEDS: VANCOMYCIN HCL 1.25 GM in DEXTROSE 5% 250 ML IV SCH (15:12)
--- NOTE | 2020-11-19 16:16 | NUR ---
PATIENT STABLE. BREATHING EVEN AND UNLABORED. ALL SAFETY MEASURES IN PLACE. WILL CONTINUE TO MONITOR.
--- NOTE | 2020-11-19 18:44 | NUR ---
PATIENT SLEEPING. NO ACUTE DISTRESS NOTED. PATIENT ON 3 LITER VIA OXYMIZER. ALL SAFETY MEASURES IN PLACE. WILL CONTINUE TO MONITOR.
--- NOTE | 2020-11-19 19:20 | NUR ---
ENDORSED REPORT FOR CONTINUITY OF CARE. PATIENT STABLE. ALL SAFETY MEASURES IN PLACE.
[2020-11-19 20:00] VITALS: BP 135/78
[2020-11-19] MEDS: AZITHROMYCIN 500 MG in DEXTROSE 5% 250 ML IV SCH (23:32)
[2020-11-20 04:54] VITALS: BP 130/78
[2020-11-20 06:17] LABS: ANION GAP 6.1 (8-16); CARBON DIOXIDE 29.6 mmol/L (21-32); CREATININE 0.9 mg/dL (0.6-1.3); POTASSIUM 3.7 mmol/L (3.5-5.1)
[2020-11-20 06:26] LABS: BASOPHILS % (AUTO) 0.1 % (0.0-2.0); EOSINOPHILS # (AUTO) 0.3 K/uL (0-0.4); EOSINOPHILS % (AUTO) 2.5 % (0.0-4.0); HEMOGLOBIN 7.5 g/dL (12.0-16.0); LYMPHOCYTES # (AUTO) 0.8 K/uL (2.5-16.5); LYMPHOCYTES % (AUTO) 7.2 % (20.5-51.1); MEAN CORPUSCULAR HEMOGLOBIN 32 pg (27-31); MEAN CORPUSCULAR HGB CONC 34 g/dL (33-37); MEAN CORPUSCULAR VOLUME 94.6 fL (80-94); MONOCYTES # (AUTO) 0.8 K/uL (0.8-1.0); MONOCYTES % (AUTO) 6.4 % (1.7-9.3); NEUTROPHILS # (AUTO) 9.8 K/uL (1.8-7.7); NEUTROPHILS % (AUTO) 83.8 % (42.2-75.2); PLATELET COUNT (AUTO) 282 K/uL (140-450); RED BLOOD CELL COUNT(AUTO) 2.33 MIL/uL (4.20-5.40); RED CELL DISTRIBUTION WIDTH 14.8 % (11.6-13.7); WHITE BLOOD COUNT (AUTO) 11.7 K/uL (4.8-10.8)
--- NOTE | 2020-11-20 07:35 | NUR ---
PT RECEIVED FROM DIRECTOR ENGINEERING RN, PT RESTING IN BED NO S/SX OF DISTRESS
--- NOTE | 2020-11-20 08:20 | NUR ---
MEDICATIONS BROUGHT TO PT. [PT STATES NOT AT THIS TIME WANTS TO SLEEP.
[2020-11-20] MEDS: PANTOPRAZOLE 40 MG INJ VIAL IVP SCH (08:25)
[2020-11-20] MEDS: SUCRALFATE 1 GM TAB PO SCH ×4 (08:25→21:00)
[2020-11-20] MEDS: LACTOBACILLUS RHAMNOSUS GG 1 EACH CAP PO SCH (08:25)
[2020-11-20] MEDS: PSYLLIUM 12.2 GM/PKT PO SCH (08:25)
--- NOTE | 2020-11-20 09:26 | NUR ---
PT REQUEST NEW BREAKFAST BECAUSE IT IS COLD, NEW BREAKFAST PROVIDED.
--- NOTE | 2020-11-20 11:20 | NUR ---
PT AT BEDSIDE. PT DESATURATED TO 86% WHILE EXERCISING
[2020-11-20 12:00] VITALS: BP 126/66
--- NOTE | 2020-11-20 13:00 | NUR ---
MEDICATIONS GIVEN PER MD ORDER/ PT EDUCATED AND VERBALIZED UNDERSTANDING. ALL SAFETY MEASURES ARE IN PLACE
[2020-11-20] MEDS: VANCOMYCIN HCL 1.25 GM in DEXTROSE 5% 250 ML IV SCH (13:31)
--- NOTE | 2020-11-20 15:20 | NUR ---
DAUGHTER IS AT BEDSIDE
[2020-11-20] MEDS: SODIUM FERRIC GLUCONATE 125 MG in NACL 0.9% 100 ML IV SCH (15:26)
--- NOTE | 2020-11-20 18:00 | NUR ---
pt in bed eating dinner, medications given per md order. pt stable
--- NOTE | 2020-11-20 19:34 | NUR ---
PT ENDORSED TO FIREWOOD CUTTER RN FOR CONTINUITY OF CARE. PT STABLE
[2020-11-20 20:00] VITALS: BP 130/78
--- NOTE | 2020-11-20 20:00 | NUR ---
RECEIVED PATIENT INHER BED AWAKE AND COHERENT SPEAK CLEAR TURKISH. C/O F/C FULL. WAS EMPTIED AROUND 800 ML URINE WAS THE OUT PUT, RECORDED
--- NOTE | 2020-11-20 21:00 | NUR ---
DUE MED WAS GIVEN BYMOUTH TOLERATED WELL BY THE PATIENT.
--- NOTE | 2020-11-20 23:00 | NUR ---
CT SCAN STAFF CAME TO [employer] CONSULTANT THE PATIENT FOR CT OF THE CHEST, WAS POSTPONED BECAUSE NO CONSENT WAS AVAILABLE IN THE RIGHT PAPER FORM, CONTACTED DR. DYSON TO BE ABLE TO GET ONE FOR HASFA, DR. DYSON REPLIED SENDING HER E MAIL ADDRESS, BUT NO SCANNER WAS AVAILABLE TO PUT THE FORM INTO PDFTO BE SEND VIA E MAIL., RN ASKED HELP FROM RE SALGADO). UNABLE TO FIND SOLUTION, TO BE ENDORSED IN THE MORNING.
--- NOTE | 2020-11-21 | NUR ---
PATIENT WAS CALMLY ASLEEP.
--- NOTE | 2020-11-21 03:00 | NUR ---
PATIENT WAS CALMLY ASLEEP.
[2020-11-21 04:00] VITALS: BP 130/78
[2020-11-21 06:10] LABS: BASOPHILS % (AUTO) 0.1 % (0.0-2.0); EOSINOPHILS # (AUTO) 0.3 K/uL (0-0.4); EOSINOPHILS % (AUTO) 2.4 % (0.0-4.0); HEMATOCRIT 21.4 % (36-48); HEMOGLOBIN 7.4 g/dL (12.0-16.0); LYMPHOCYTES # (AUTO) 0.7 K/uL (2.5-16.5); LYMPHOCYTES % (AUTO) 6.4 % (20.5-51.1); MEAN CORPUSCULAR HEMOGLOBIN 33 pg (27-31); MEAN CORPUSCULAR HGB CONC 34 g/dL (33-37); MEAN CORPUSCULAR VOLUME 94.6 fL (80-94); MONOCYTES # (AUTO) 0.8 K/uL (0.8-1.0); MONOCYTES % (AUTO) 7.9 % (1.7-9.3); NEUTROPHILS # (AUTO) 8.6 K/uL (1.8-7.7); NEUTROPHILS % (AUTO) 83.2 % (42.2-75.2); PLATELET COUNT (AUTO) 296 K/uL (140-450); RED BLOOD CELL COUNT(AUTO) 2.27 MIL/uL (4.20-5.40); RED CELL DISTRIBUTION WIDTH 15.3 % (11.6-13.7); WHITE BLOOD COUNT (AUTO) 10.4 K/uL (4.8-10.8)
[2020-11-21 06:45] LABS: ANION GAP 7.1 (8-16); CARBON DIOXIDE 27.4 mmol/L (21-32); CREATININE 0.9 mg/dL (0.6-1.3); POTASSIUM 3.5 mmol/L (3.5-5.1)
--- NOTE | 2020-11-21 07:36 | NUR ---
ALL REPORTS GIVEN TO INCOMING RN, TRANSFER OF CARE ENDORSED.
[2020-11-21 08:00] VITALS: BP 129/76
[2020-11-21] MEDS: LACTOBACILLUS RHAMNOSUS GG 1 EACH CAP PO SCH (09:00)
[2020-11-21] MEDS: PSYLLIUM 12.2 GM/PKT PO SCH (09:00)
[2020-11-21] MEDS: SUCRALFATE 1 GM TAB PO SCH ×4 (09:00→20:57)
[2020-11-21] MEDS ORDERED: fentaNYL citrate 0.05 MG/ML VIAL ONE (09:19)
[2020-11-21] MEDS ORDERED: MIDAZOLAM 5 MG/5 ML VIAL ONE (09:19)
[2020-11-21] MEDS ORDERED: diphenhydrAMINE 50 MG/ML VIAL ONE (09:19)
[2020-11-21] MEDS: PANTOPRAZOLE 40 MG INJ VIAL IVP SCH ×3 (10:55→22:47)
[2020-11-21] MEDS ORDERED: MIDAZOLAM 2 MG/2 ML VIAL IVP ONE (11:10)
[2020-11-21] MEDS ORDERED: GLUCAGON 1 MG VIAL IVP ONE (11:10)
[2020-11-21] MEDS ORDERED: fentaNYL citrate 0.05 MG/ML VIAL IVP ONE (11:10)
[2020-11-21 11:38] VITALS: BP 117/56
[2020-11-21] MEDS: SODIUM FERRIC GLUCONATE 125 MG in NACL 0.9% 100 ML IV SCH ×2 (11:45→20:57)
[2020-11-21] MEDS ORDERED: PHYTONADIONE 10 MG in NACL 0.9% 50 ML IV SCH (12:35)
--- NOTE | 2020-11-21 12:36 | NUR ---
MULTIPLE ATTEMPTS TO SEE PATIENT FOR PHYSICAL THERAPY TREATMENT HOWEVER PATIENT REFUSED INITIALLY STATING SHE WANTED TO GET EGD PROCEDURE DONE FIRST. AFTER PROCEDURE, PATIENT VERY DROWSY/LETHARGIC. UNABLE TO PARTICIPATE IN OOB ACTIVITIES; BP: 119/55, 91% SAT ON 3L VIA OXIMIZER, 78BPM. WILL FOLLOW UP IF APPROPRIATE; RN AWARE.
[2020-11-21] MEDS ORDERED: GLUCAGON 1 MG VIAL ONE (12:49)
[2020-11-21 16:00] VITALS: BP 121/61
[2020-11-21] MEDS: FERROUS GLUCONATE 324 MG TAB PO SCH (16:06)
--- NOTE | 2020-11-21 16:57 | NUR ---
11/21/20 RD FOLLOW UP COMPLETED PLEASE REFER TO NUTRITION ASSESSMENT UNDER CARE ACTIVITY FOR ESTIMATED NUTRITIONAL NEEDS. 1. CONT. REGULAR TOLERATED 2. ENCOURAGE PO INTAKE OVER 75% 3. RD TO FOLLOW-UP 3-5 DAYS, MODERATE RISK MITCH OCAMPO, RD
--- NOTE | 2020-11-21 19:30 | NUR ---
PATIENT HAD BUSY DAY WITH TWO PROCEDURE'S CLINICAL EVALUATOR GONE FOR SEVERAL HOUR'S FOR EDG. PATIENT FOUND TO HAVE ULCER. THEN SCHEDULED FOR CT CHEST ANGIOGRAM ASSISTED DOWN TO RADIOLOGY BY RN DUE TO PATIENT HAVING PICC LINE FOR LICENSED PROFESSIONAL TO GIVE CONTRAST TOLERATED BOTH PROCEDURE'S WELL. CARPET RENOVATOR CAME AFTER PROCEDURE'S IN AFTERNOON TO FOLLOW UP ON PATIENT'S NUTRITION STATUS PATIENT VERY FOND OF LUNCH TRAY FOR FIRST TIME ENJOYED THE FOOD RELATIVE TO BRING DINNER
--- NOTE | 2020-11-21 19:35 | NUR ---
RECEIVED BEDSIDE REPORT FROM DAY SHIFT NURSE. PATIENT IS AWAKE, ALERT, AND COOPERATIVE. RESPIRATION EVEN UNLABORED ON 3L OXYMIZER. SKIN IS WARM AND DRY. IV PATENT AND INTACT. PLAN OF CARE WAS DISCUSSED. ALL SAFETY MEASURE IN PLACE. BED IS AT LOW POSITION. CALL LIGHT WITHIN REACH. WILL CONTINUE TO MONITOR.
[2020-11-21 20:00] VITALS: BP 121/59
--- NOTE | 2020-11-21 20:57 | NUR ---
ALL SCHEDULED MEDS WERE GIVEN PER ORDER. NO ASA NOTED. WILL CONTINUE TO MONITOR
[2020-11-21] MEDS ORDERED: CRUSHER, PILL MC ONE (21:04)
--- NOTE | 2020-11-21 22:28 | NUR ---
PROVIDED PATIENT WATER
--- NOTE | 2020-11-21 22:49 | NUR ---
MANUALLY SCANNED PROTONIX MEDICATION DUE TO INVALID BARCODE. HAD ANOTHER NURSE TO VERIFIED WITH ME THAT THE MEDICATION THAT I AM SCANNING IS PROTONIX WITH THE RIGHT DOSAGE AND ROUTE. WILL NOTIFY PHARMACY TOMORROW
--- NOTE | 2020-11-22 00:40 | NUR ---
MADE ROUNDS, PATIENT SLEEPING RESPIRATION EVEN UNLABORED ON 3L OXYMIZER. NO DISTRESS NOTED. WILL CONTINUE TO MONITOR.
--- NOTE | 2020-11-22 02:28 | NUR ---
MADE ROUNDS, PATIENT SLEEPING RESPIRATION EVEN UNLABORED ON 3L OXYMIZER. NO DISTRESS NOTED. WILL CONTINUE TO MONITOR.
[2020-11-22 04:00] VITALS: BP 128/62
--- NOTE | 2020-11-22 05:09 | NUR ---
VITALS WERE TAKEN.
--- NOTE | 2020-11-22 07:13 | NUR ---
ENDORSED PATIENT TO DAY SHIFT NURSE FOR CONTINUITY OF CARE
[2020-11-22] MEDS: PANTOPRAZOLE 40 MG INJ VIAL IVP SCH (07:27)
[2020-11-22 08:00] VITALS: BP 139/70
[2020-11-22] MEDS: SODIUM FERRIC GLUCONATE 125 MG in NACL 0.9% 100 ML IV SCH (09:00)
[2020-11-22] MEDS: PSYLLIUM 12.2 GM/PKT PO SCH (09:00)
[2020-11-22] MEDS: FERROUS GLUCONATE 324 MG TAB PO SCH (10:20)
[2020-11-22] MEDS: LACTOBACILLUS RHAMNOSUS GG 1 EACH CAP PO SCH (10:21)
[2020-11-22] MEDS: SUCRALFATE 1 GM TAB PO SCH (10:21)
[2020-11-22] MEDS ORDERED: FERR-149 PO (11:07)
[2020-11-22] MEDS ORDERED: PANT40EC PO (11:07)
[2020-11-22] MEDS ORDERED: DIPHENOXYLATE /ATROPINE 2.5 MG TAB PO PRN (14:05)
[2020-11-22 14:10] VITALS: BP 139/70
--- NOTE | 2020-11-22 16:00 | NUR ---
PATIENT DISCHARGED TODAY EARLY AFTERNOON TO FACILITY FOR CONTINUED PT REHABILITATION INCREASE PHYSICAL ENDURANCE. DISCHARGING WITH 2 MED'S IRON AND PEPCID. WILL CONTINUE ON NEW MED'S FOR TWO MONTH'S DUE TO GI BLEED. TOLERATED PROCEDURE'S YESTERDAY EDG AND CHEST CT ANGIOGRAM. NEED'S SOME ASSISTANCE YET WITH ADL'S DISCHARGING ON REG DIET. DAUGHTER AWARE OF PATIENT BEING DISCHARGED TO NEW FACILITY DISCHARGE PACKET COMPLETED FOR FACILITY AND PATIENT. PATIENT TOOK TIME AND READ ALL PAPER'S PRIOR TO SIGHING DISCHARGED PER TRANSPORT COMPANY WITH OXYGEN AND BELONGING'S.
== END 2020-11-22 15:30 | DRG 870 ==
LOC: MED 14:16 → MTU 19:20 → MIC 11-11 13:26 → MTU 11-17 06:50
PROVIDERS: ADMIT Hospitalist; ATTEND Hospitalist
PROC: 5A1955Z Respiratory Ventilation, Greater than 96 Consecutive Hours (ICD-10-PCS; principal; 2020-11-11)
PROC: 0BH18EZ Insertion of Endotracheal Airway into Trachea, Via Natural or Artificial Opening Endoscopic (ICD-10-PCS; 2020-11-11)
PROC: 5A09357 Assistance with Respiratory Ventilation, Less than 24 Consecutive Hours, Continuous Positive Airway Pressure (ICD-10-PCS; 2020-11-11)
PROC: 30233N1 Transfusion of Nonautologous Red Blood Cells into Peripheral Vein, Percutaneous Approach (ICD-10-PCS; 2020-11-18)
PROC: 0W3P8ZZ Control Bleeding in Gastrointestinal Tract, Via Natural or Artificial Opening Endoscopic (ICD-10-PCS; 2020-11-21)
DX: A41.9 Sepsis, unspecified organism (principal); J96.01 Acute respiratory failure with hypoxia; R65.21 Severe sepsis with septic shock; E43 Unspecified severe protein-calorie malnutrition; J12.9 Viral pneumonia, unspecified; J15.9 Unspecified bacterial pneumonia; K26.0 Acute duodenal ulcer with hemorrhage; N17.0 Acute kidney failure with tubular necrosis; I31.3 Pericardial effusion (noninflammatory); J90 Pleural effusion, not elsewhere classified; D64.9 Anemia, unspecified; Z20.822 Contact with and (suspected) exposure to COVID-19; E87.6 Hypokalemia; Z68.32 Body mass index [BMI] 32.0-32.9, adult; R59.1 Generalized enlarged lymph nodes; K29.70 Gastritis, unspecified, without bleeding
CPT/HCPCS: 31500; 36415; 36600; 71045; 71046; 71275; 80048; 80053; 80202; 82272; 82803; 83605; 83615; 83735; 83880; 84100; 84484; 85025; 85379; 85651; 86140; 86677; 86886; 86900; 86901; 86920; 87040; 87070; 87081; 87205; 87449; 87804; 92610; 92700; 93005; 94002; 94003; 94640; 94660; 96365; 97110; 97112; 97116; 97163-GP; 97530; 99291; C9113; J0456; J0696; J1200; J1610; J1644; J1940; J2060; J2250; J2270; J2370; J2405; J2543; J2704; J2916; J2930; J3010; J3370; J3430; J3475; J3490; J7030; J7060; J7512; P9016; Q9967; U0003